=== PATIENT | female | born 1995 | race Caucasian/White ===

== ENCOUNTER 2018-04-05 14:01 | Inpatient (IN) | payer MEDICAID, OTHER ==
[~2018-04-05] VITALS: Ht 147.3 cm; Wt 99.8 kg
[2018-04-05 14:05] VITALS: BP 145/66; PULSE 101; RESP 16; TEMP 98.4; O2SAT 98
[2018-04-05 14:35] VITALS: BP 127/67; PULSE 99; RESP 18; TEMP 98.4; O2SAT 95
[2018-04-05 15:19] LABS: BASOPHIL % 0.5 % (0.0-2.0); EOSINOPHIL # 0.1 TH/MM3 (0-0.4); EOSINOPHIL % 0.9 % (0.0-4.0); HEMATOCRIT 44.7 % (35.0-46.0); HEMOGLOBIN 15.7 GM/DL (11.6-15.3); LYMPH % 28.3 % (9.0-44.0); LYMPHOCYTE # 2.6 TH/MM3 (1.0-4.8); MEAN CELL VOLUME 91.5 FL (80.0-100.0); MEAN CORPUSCULAR HEMOGLOBIN 32.1 PG (27.0-34.0); MEAN PLATELET VOLUME 9.9 FL (7.0-11.0); MONO % 5.3 % (0.0-8.0); MONOCYTE # 0.5 TH/MM3 (0-0.9); PLATELET COUNT 211 TH/MM3 (150-450); RED BLOOD COUNT 4.89 MIL/MM3 (4.00-5.30); RED CELL DISTRIBUTION WIDTH 12.2 % (11.6-17.2); WHITE BLOOD COUNT 9.2 TH/MM3 (4.0-11.0)
--- NOTE | 2018-04-05 15:27 | PD ---
HPI Chief Complaint: Suicide Ideation/Attempt Time Seen by Provider: 14:28 Travel History International Travel<30 days: No Contact w/Intl Traveler<30days: No Traveled to known affect area: No History of Present Illness HPI Patient is a 22-year-old female presenting voluntarily to the emergency department for psychiatric evaluation. Patient states she is doing the [employer], her professor gave her the option of coming in on her own or possibly having her Reis acted for suicidal ideations. Apparently professor noticed patient had cuts on her wrists was concerned about her. Patient does report feeling suicidal, she reports that she has been cutting herself since she was 14 years old however for the last few weeks specifically last few days she has cut herself more frequently, and deeply because she wanted to see "if it hurts to ". Patient stated there is a lot of things going on her life that has made her feel more depressed lately. She states that her parents got , than her mother's girlfriend left her and her mother blamed her for it. Her father is in the hospital with a GI bleed, her grandfather is paralyzed. She reports that she was hospitalized for psychiatric issues at age 15, she was on medications for 3 weeks when she was discharged her parents that her stop taking the medications. She denies any history of physical or sexual abuse. 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 She states that she has not been sleeping well lately, she only usually cuts herself on her legs but progressed to her wrist due to increasing depression. She denies any hallucinations or homicidal ideations, she denies any drug abuse or alcohol use. She reports a remote history of asthma. [facility] Past Medical History Asthma: Yes Depression: Yes ?: Not Social History Alcohol Use: No Tobacco Use: No Substance Use: No Review of Systems Except as stated in HPI: all other systems reviewed are Neg Psychiatric: Positive: Anxiety, Depression, Suicidal Ideations Physical Exam Narrative GENERAL: Overweight, well-developed, alert female. Presenting in no acute distress. SKIN: Warm and dry. HEAD: Atraumatic. Normocephalic. EYES: Pupils equal and round. No scleral icterus. No injection or drainage. ENT: No nasal bleeding or discharge. Mucous membranes pink and moist. NECK: Trachea midline. No JVD. CARDIOVASCULAR: Regular rate and rhythm. RESPIRATORY: No accessory muscle use. Clear to auscultation. Breath sounds equal bilaterally. GASTROINTESTINAL: Abdomen soft, non-tender, nondistended. Hepatic and splenic margins not palpable. MUSCULOSKELETAL: Extremities without clubbing, cyanosis, or edema. No obvious deformities. NEUROLOGICAL: Awake and alert. No obvious cranial nerve deficits. Motor grossly within normal limits. Five out of 5 muscle strength in the arms and legs. Normal speech. PSYCHIATRIC: Depressed mood and affect; insight and judgment normal. Data Data Last Documented VS Vital Signs Date Time Temp Pulse Resp B/P (MAP) Pulse Ox O2 Delivery O2 Flow Rate FiO2 04/05/18 14:35 98.4 99 18 127/67 (87) 95 Room Air Orders Orders Complete Blood Count With Diff (04/05/18 14:27) Comprehensive Metabolic Panel (04/05/18 14:27) Thyroid Stimulating Hormone (04/05/18 14:27) Urinalysis - C+S If Indicated (04/05/18 14:27) Psych Screen (04/05/18 14:27) Drug Screen, Random Urine (04/05/18 14:27) Alcohol (Ethanol) (04/05/18 14:27) Salicylates (Aspirin) (04/05/18 14:27) Tylenol (Acetaminophen) (04/05/18 14:27) Diet Regular Basic (04/05/18 Lunch) Diet Regular Basic (04/05/18 Dinner) Labs Laboratory Tests Test 04/05/18 15:09 White Blood Count 9.2 TH/MM3 Red Blood Count 4.89 MIL/MM3 Hemoglobin 15.7 GM/DL Hematocrit 44.7 % Mean Corpuscular Volume 91.5 FL Mean Corpuscular Hemoglobin 32.1 PG Mean Corpuscular Hemoglobin Concent 35.0 % Red Cell Distribution Width 12.2 % Platelet Count 211 TH/MM3 Mean Platelet Volume 9.9 FL Neutrophils (%) (Auto) 65.0 % Lymphocytes (%) (Auto) 28.3 % Monocytes (%) (Auto) 5.3 % Eosinophils (%) (Auto) 0.9 % Basophils (%) (Auto) 0.5 % Neutrophils # (Auto) 6.0 TH/MM3 Lymphocytes # (Auto) 2.6 TH/MM3 Monocytes # (Auto) 0.5 TH/MM3 Eosinophils # (Auto) 0.1 TH/MM3 Basophils # (Auto) 0.0 TH/MM3 CBC Comment DIFF FINAL Differential Comment Blood Urea Nitrogen 10 MG/DL Creatinine 0.78 MG/DL Random Glucose 96 MG/DL Total Protein 7.9 GM/DL Albumin 4.4 GM/DL Calcium Level 8.9 MG/DL Alkaline Phosphatase 71 U/L Aspartate Amino Transf (AST/SGOT) 38 U/L Alanine Aminotransferase (ALT/SGPT) 85 U/L Total Bilirubin 0.6 MG/DL Sodium Level 140 MEQ/L Potassium Level 4.2 MEQ/L Chloride Level 107 MEQ/L Carbon Dioxide Level 23.6 MEQ/L Anion Gap 9 MEQ/L Estimat Glomerular Filtration Rate 94 ML/MIN Thyroid Stimulating Hormone 3rd Gen 1.390 uIU/ML Salicylates Level LESS THAN 1.7 MG/DL Acetaminophen Level LESS THAN 2.0 MCG/ML Ethyl Alcohol Level LESS THAN 3 MG/DL MDM Medical Decision Making Medical Screen Exam Complete: Yes Emergency Medical Condition: Yes Interpretation(s) Laboratory Tests Test 04/05/18 15:09 White Blood Count 9.2 TH/MM3 Red Blood Count 4.89 MIL/MM3 Hemoglobin 15.7 GM/DL Hematocrit 44.7 % Mean Corpuscular Volume 91.5 FL Mean Corpuscular Hemoglobin 32.1 PG Mean Corpuscular Hemoglobin Concent 35.0 % Red Cell Distribution Width 12.2 % Platelet Count 211 TH/MM3 Mean Platelet Volume 9.9 FL Neutrophils (%) (Auto) 65.0 % Lymphocytes (%) (Auto) 28.3 % Monocytes (%) (Auto) 5.3 % Eosinophils (%) (Auto) 0.9 % Basophils (%) (Auto) 0.5 % Neutrophils # (Auto) 6.0 TH/MM3 Lymphocytes # (Auto) 2.6 TH/MM3 Monocytes # (Auto) 0.5 TH/MM3 Eosinophils # (Auto) 0.1 TH/MM3 Basophils # (Auto) 0.0 TH/MM3 CBC Comment DIFF FINAL Differential Comment Blood Urea Nitrogen 10 MG/DL Creatinine 0.78 MG/DL Random Glucose 96 MG/DL Total Protein 7.9 GM/DL Albumin 4.4 GM/DL Calcium Level 8.9 MG/DL Alkaline Phosphatase 71 U/L Aspartate Amino Transf (AST/SGOT) 38 U/L Alanine Aminotransferase (ALT/SGPT) 85 U/L Total Bilirubin 0.6 MG/DL Sodium Level 140 MEQ/L Potassium Level 4.2 MEQ/L Chloride Level 107 MEQ/L Carbon Dioxide Level 23.6 MEQ/L Anion Gap 9 MEQ/L Estimat Glomerular Filtration Rate 94 ML/MIN Thyroid Stimulating Hormone 3rd Gen 1.390 uIU/ML Salicylates Level LESS THAN 1.7 MG/DL Acetaminophen Level LESS THAN 2.0 MCG/ML Ethyl Alcohol Level LESS THAN 3 MG/DL Vital Signs Date Time Temp Pulse Resp B/P (MAP) Pulse Ox O2 Delivery O2 Flow Rate FiO2 04/05/18 14:35 98.4 99 18 127/67 (87) 95 Room Air 04/05/18 14:05 98.4 101 16 145/66 (92) 98 Differential Diagnosis Mood disorder versus depression versus suicidal ideations versus impaired coping mechanisms versus other Narrative Course Patient is well-appearing 22-year-old female presented voluntarily for psychiatric evaluation after being found cutting herself by her professors. Patient admits to feeling suicidal and cutting herself deeper than normal because of this. Patient's vital signs are stable. Mental health screening discussed with the patient. Psychiatric screen ordered. Labs reviewed, no acute findings identified. Patient is medically cleared for psychiatric evaluation at this time. Diagnosis Primary Impression: Medical clearance for psychiatric admission Condition: Stable RolandoMarlin ORANTES Apr 05, 2018 15:27
[2018-04-05 15:44] LABS: ALBUMIN 4.4 GM/DL (3.4-5.0); ALT (GPT) 85 U/L (9-42); AST (GOT) 38 U/L (16-38); BICARBONATE 23.6 MEQ/L (21.0-32.0); BLOOD UREA NITROGEN 10 MG/DL (7-18); CALCIUM 8.9 MG/DL (8.5-10.1); CHLORIDE 107 MEQ/L (98-107); CREATININE 0.78 MG/DL (0.50-1.00); GLOMERULAR FILTRATION RATE 94 ML/MIN (>89); GLUCOSE,RANDOM 96 MG/DL (74-106); SODIUM (NA) 140 MEQ/L (136-145)
[2018-04-05 15:53] LABS: ALKALINE PHOSPHATASE 71 U/L (45-117); TOTAL BILIRUBIN ADULT 0.6 MG/DL (0.2-1.0); TOTAL PROTEIN 7.9 GM/DL (6.4-8.2)
[2018-04-05 15:55] LABS: ACETAMINOPHEN LESS THAN 2.0 MCG/ML (10.0-30.0)
[2018-04-05 18:10] VITALS: BP 130/69; PULSE 83; RESP 20; O2SAT 98
[2018-04-05 20:16] LABS: BACTERIA, URINE RARE /hpf; BILIRUBIN, URINE NEG (NEG); BLOOD, URINE NEG (NEG); GLUCOSE,URINE NEG (NEG); KETONE, URINE NEG (NEG); MUCUS URINE FEW /lpf (OCC); NITRITE,URINE NEG (NEG); SQUAMOUS EPITHELIAL CELL URINE 1 /hpf (0-5); URINE COLOR YELLOW (YELLW/STRAW); URINE LEUKOCYTE ESTERASE NEG (NEG)
[2018-04-05 22:24] VITALS: BP_SYST 141; BP_SYST 99; BP_DIAS 64; BP_DIAS 66; PULSE 77; PULSE 83; RESP 16; RESP 20; TEMP 98.1; TEMP 98.3; O2SAT 98
[2018-04-06 05:27] VITALS: BP 114/70; PULSE 80; RESP 18; TEMP 97.2; O2SAT 99
[2018-04-06 07:34] VITALS: BP 123/64; PULSE 81; RESP 15; TEMP 98.2; O2SAT 100
[2018-04-06 13:51] VITALS: BP 115/68; PULSE 89; RESP 18; O2SAT 97
--- NOTE | 2018-04-06 15:59 | PD ---
History of Present Illness Chief Complaint: Suicide Ideation/Attempt Time Seen by Provider: 14:30 Travel History International Travel<30 Days: No Contact w/Intl Traveler<30days: No Known affected area: No Legal Status Legal Status: Voluntary History of Present Illness: History of Present Illness HPI Patient is a 22-year-old single female with reported history of depression, history of self-injurious behavior by cutting, presenting voluntarily to the emergency department for psychiatric evaluation. 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 Her professor note is that the patient has self-inflicted superficial scratches on her wrist and gave her the option of coming in on her own or possibly having her Reis acted for suicidal ideations. Patient reports a history of self- injurious behavior beginning at age 15 years. Patient does report feeling suicidal and that for the past few days she has cut herself more frequently, and deeply because she wanted to see "if it hurts to ". Patient reports following stressors including the divorce of her parents, feeling that she was blamed for her mother's girlfriend leaving her mother, having to help care for her grandfather who is paralyzed, feeling like she is a disappointment to her family and her friends. EMR is reviewed. No previous contact with [facility] psychiatry. Current toxicology is negative. Patient is seen in J pod. She is alert and oriented female dressed in [facility]. She is engaging and cooperative with full range of affect. Her speech is clear and logical and of normal rate and tone. She describes her mood as depressed. Reports increased thoughts of suicide for the past few months but that in the past several days the thoughts of suicide have not gone away. She reports that 2 days ago she went into the shower with a blade and attempted to cut her wrists but was unsuccessful. 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 She feels unsafe if she were to be discharge because she cannot guarantee that she will not try to kill herself again. The patient denies any hallucinations. No delusions are no paranoia are evident. Reports poor sleep and states that she will not sleep for 3 days at a time and then will sleep for 36 hours straight, decreased appetite. She states she is maintaining fair grades. PF[employer] Past Medical History Medical History: Denies Significant Hx Asthma: Yes Depression: Yes Diminished Hearing: No Immunizations Current: Yes Influenza Vaccination: Yes ?: Not Past Surgical History Surgical History: No Previous Surgery Psychiatric History Psychiatric History Hx Psychiatric Treatment: 1 previous hospitalization at age 15 years for cutting herself. States she was prescribed medications but her parents took her off the medications after several weeks History of Inpatient Treatment: Yes Guns or firearms in home: No Social History Single, never , no children. Lives with her mother, her sister, and her grandfather. [facility] is [facility] [employer] and is studying nursing Hx Alcohol Use: No Hx Tobacco Use: No Hx Substance Use: No (PT DENIES) Hx of Substance Use Treatment: No Family Psychiatric History Maternal aunt with bipolar disorder. Father's uncle committed suicide by shooting himself. Allergies-Medications (Allergen,Severity, Reaction): Coded Allergies: No Known Allergies (Unverified , 04/06/18) Review of Systems Psychiatric: COMPLAINS OF: Depression, Suicidal Ideation Except as stated in HPI: all other systems reviewed are Neg Mental Status Examination Appearance: Appropriate Consciousness: Alert Orientation: x4 Motor Activity: Normal gait Speech: Unremarkable Language: Adequate Fund of Knowledge: Adequate Attention and Concentration: Adequate Memory: Unremarkable Mood: Appropriate Affect: Appropriate Thought Process & Associations: Intact, Logical, Goal directed Thought Content: Appropriate Hallucination Type: None Delusion Type: None Suicidal Ideation: Yes Suicidal Plan: Yes Suicidal Intention: No Homicidal Ideation: No Homicidal Plan: No Homicidal Intention: No Insight: Fair Judgment: Impulsive MDM Medical Decision Making Medical Record Reviewed: Yes Assessment/Plan Patient is a 22-year-old single female with reported history of depression, history of self-injurious behavior by cutting, presenting voluntarily to the emergency department for psychiatric evaluation. 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 Her professor note is that the patient has self-inflicted superficial scratches on her wrist and gave her the option of coming in on her own or possibly having her Reis acted for suicidal ideations. Patient reports a history of self- injurious behavior beginning at age 15 years. Patient does report feeling suicidal and that for the past few days she has cut herself more frequently, and deeply because she wanted to see "if it hurts to ". Patient continues to report feeling suicidal and unsafe if she were to go home as she cannot stop thinking about ways of committing suicide. She is unable to contract for safety with this show card writer and therefore she would be admitted to inpatient psychiatry for further evaluation, safety and stabilization. Orders Orders Diet Regular Basic (04/05/18 Dinner) Diet Regular Basic (04/06/18 Breakfast) Diet Regular Basic (04/06/18 Lunch) Diet Regular Basic (04/06/18 Dinner) Results Vital Signs Date Time Temp Pulse Resp B/P (MAP) Pulse Ox O2 Delivery O2 Flow Rate FiO2 04/06/18 13:51 89 18 115/68 (84) 97 Room Air 04/06/18 07:34 98.2 81 15 123/64 (83) 100 Room Air 04/06/18 07:34 81 15 100 Room Air 04/06/18 05:27 97.2 80 18 114/70 (85) 99 04/05/18 22:24 98.1 83 20 141/64 (89) 98 04/05/18 18:10 83 20 130/69 (89) 98 Room Air Laboratory Tests Test 04/05/18 19:27 Urine Color YELLOW Urine Turbidity CLEAR Urine pH 7.0 Urine Specific [place] 1.027 Urine Protein TRACE Urine Glucose (UA) NEG Urine Ketones NEG Urine Occult Blood NEG Urine Nitrite NEG Urine Bilirubin NEG Urine Urobilinogen LESS THAN 2.0 Urine Leukocyte Esterase NEG Urine RBC 8 Urine WBC LESS THAN 1 Urine Squamous Epithelial Cells 1 Urine Bacteria RARE Urine Mucus FEW Microscopic Urinalysis Comment CULT NOT INDICATED Urine Opiates Screen NEG Urine Barbiturates Screen NEG Urine Amphetamines Screen NEG Urine Benzodiazepines Screen NEG Urine Cocaine Screen NEG Urine Cannabinoids Screen NEG Diagnosis Primary Impression: Medical clearance for psychiatric admission Additional Impression: Adjustment disorder Admitting Information Admitting Physician Requests: Admit Condition: Stable Problem Qualifiers Additional Impression: Adjustment disorder Qualified Codes: F43.21 - Adjustment disorder with depressed mood Tuyet Santana Apr 06, 2018 15:59
[2018-04-06] MEDS ORDERED: MAGNESIUM HYDROXIDE SUSP 30 ML CUP PO PRN (16:30)
[2018-04-06] MEDS ORDERED: ALUMINUM/MAGNESIUM/SIMETH 30 ML CUP PO PRN (16:30)
[2018-04-06] MEDS ORDERED: ACETAMINOPHEN 325 MG TAB PO PRN (16:30)
[2018-04-06 18:00] VITALS: BP 115/68; PULSE 89; RESP 18; TEMP 98.2; O2SAT 97
[2018-04-07 05:43] VITALS: BP 110/63; PULSE 75; RESP 18; TEMP 97.4; O2SAT 100
[2018-04-07 08:44] LABS: BICARBONATE 26.5 MEQ/L (21.0-32.0); BLOOD UREA NITROGEN 17 MG/DL (7-18); CALCIUM 9.3 MG/DL (8.5-10.1); CHLORIDE 105 MEQ/L (98-107); CHOLESTEROL 182 MG/DL (120-200); CREATININE 0.78 MG/DL (0.50-1.00); GLOMERULAR FILTRATION RATE 94 ML/MIN (>89); GLUCOSE,RANDOM 92 MG/DL (74-106); SODIUM (NA) 141 MEQ/L (136-145); TRIGLYCERIDES 207 MG/DL (42-150)
[2018-04-07 08:49] LABS: HDL CHOLESTEROL 31.9 MG/DL (40.0-60.0); LDL CHOLESTEROL 109 MG/DL (0-99)
--- NOTE | 2018-04-07 10:36 | EKG ---
Date Performed: 04/07/2018 Time Performed: 07:14:25 PTAGE: 22 years EKG: Sinus rhythm WITH SINUS ARRHYTHMIA LOW QRS VOLTAGE IN PRECORDIAL LEADS BORDERLINE ECG PREVIOUS TRACING : 09/02/1999 08.11 Compared to previous tracing, heart rate has slowed. DOCTOR: Isiah George Interpretating Date/Time 04/07/2018 10:35:07
--- NOTE | 2018-04-07 12:04 | HHI.HP ---
Provisional Diagnosis Admission Date Apr 06, 2018 at 16:21 [place] I. 1. Major depressive disorder, recurrent, moderate Rule out underlying dysthymia (i.e. double depression) 2. Nonsuicidal self-injurious behavior Gob[place] II. Deferred Certification of Person's Competence To Provide Express and Informed Consent I have personally examined Chiquis Anna , a person being served at [facility] on, Apr 07, 2018 12:04. Express and informed consent means consent voluntarily given in writing, by a competent person, after sufficient explanation and disclosure of the subject matter involved to enable the person to make a knowing and willful decision without any element of force, fraud, deceit, duress, or other form of constraint or coercion. This person is 18 years of age or older, is not now known to be incompetent to consent to treatment with a guardian advocate, and does not have a health care surrogate or proxy currently making medical treatment decisions. I have found this person to be one of the following: [x] Competent to provide express and informed consent, as defined above, for voluntary admission to this facility and is competent to provide express and informed consent for treatment. He/she has the consistent capacity to make well reasoned, willful, and knowing decisions concerning his or her medical or mental health treatment. The person fully and consistently understands the purpose of the admission for examination/placement and is fully capable of personally exercising all rights assured [place] Incompetent to provide express and informed consent to voluntary admission, and this is incompetent to provide express and informed consent to treatment. The person must be transferred to involuntary status and a petition for a guardian advocate filed with the Circuit Court. [] Refusing to provide express and informed consent to voluntary admission but is competent to provide express and informed consent for treatment. The person must be discharged or transferred to involuntary status. Form shall be completed within 24 hours of a person's arrival at the receiving facility and filed in the clinical record of each person: 1. Admitted on a voluntary basis 2. Permitted to provide express and informed consent to his/her own treatment 3. Allowed to transfer from involuntary to voluntary status 4. Prior to permitting a person to consent to his or her own treatment after having been previously found incompetent to consent to treatment. History of Present Illness Capacity: Has Capacity Psych Chief Complaint: "I sona need to stop trying to kill myself." HPI Ms. Anna is a 22-year-old female with psychiatric history as detailed below who presents voluntarily for psychiatric admission. 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 Reviewing the electronic medical record, it appears this is patient's first visit to [facility]. Patient seen and examined with nurse. Chart reviewed. Case discussed with nursing staff. On my examination today, the patient says that she has been feeling increasingly depressed over several months. Sleep is poor as is appetite. Concentration is fair. She says that she has "always" felt depressed and "I cannot recall feeling happy." She says that she tried to slit her wrists in the shower a few days ago in a suicide attempt but discovered that one of her friends had removed the sweat box attendant that she usually uses for her non-suicidal self-injury. She was forced to use a safety razor instead and found this inadequate to the task and gave up. She says that this and all of her previous suicide attempts have been impulsive noting "I just get really stressed and anxious" and engage in negative self talk prior to self injury. She does not describe any current desire to self injure on the unit. I can elicit no current or prior hypomanic or manic symptoms. No audiovisual hallucinations. No delusional material. She does note that she is scared of the dark because she fears there are "things in the shadows coming to get me" and so she sleeps with the lights on. She denies any history of trauma when asked, although I do wonder about some sort of occult trauma history. Main stressor is relationship with parents. She apparently comes from a high expressed emotion household. Parents have and mother has been dating a female partner. Mother and partner reportedly broke up, and patient says mother blames her for the breakup. Mother has also reportedly recently been jailed. Remainder of the psychiatric ROS is negative. No acute physical complaints. Past psychiatric history: The patient reports a history of previous psychiatric diagnosis, although she cannot recall exactly what the diagnosis is. She is not presently under the care of a psychiatrist but sees a therapist by the name of Mariza every week with whom she discusses "how shitty my family is." Patient reports that she was psychiatrically admitted at age 15. She reports multiple previous suicide attempts by cutting, 5 by her account, most recently a few days ago as noted above. She also reports an extensive history of nonsuicidal self-injurious behavior starting at age 14. She says that she cuts daily. She has never sought pharmacotherapy for her psychiatric issues. Family history: Patient reports that her maternal aunt had bipolar disorder. Her paternal uncle completed suicide by gunshot. Chemical dependency history: The patient denies any abuse of drugs or alcohol. Social history: The patient lives with her mother and sister. 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 She enjoys her schooling. She also works at [employer]. She is single with no children. Denies any history. Denies any legal history. Denies any access to guns or firearms. She is an atheist. She denies any history of trauma. Review of Systems Except as stated in HPI: all other systems reviewed are Neg Past Family Social History Coded Allergies: No Known Allergies (Unverified , 04/06/18) Past Medical History Patient denies any past medical history. Current Medications Medications (Trade) Dose Ordered Sig/Kimberly Route Start Time Stop Time Status Last Admin (Tylenol) 650 mg Q4H PRN PO 04/06/18 16:30 (Milk Of Magnesia Liq) 30 ml DAILY PRN PO 04/06/18 16:30 (Mag-Al Plus Susp Liq) 30 ml Q6H PRN PO 04/06/18 16:30 Patient's Strengths (min. 2) Attending to basic needs. Verbally fluent. Physical Exam Physical examination completed by ED provider. On my examination today, the patient appears to be in no acute physical distress. No motor abnormalities noted. I do note several superficial lacerations on her left wrist as well as superficial lacerations on her right thigh. Vital Signs Vital Signs Date Time Temp Pulse Resp B/P (MAP) Pulse Ox O2 Delivery O2 Flow Rate FiO2 04/07/18 05:43 97.4 75 18 110/63 (79) 100 04/06/18 13:51 Room Air Lab Results Test 04/07/18 06:21 Blood Urea Nitrogen 17 MG/DL Creatinine 0.78 MG/DL Random Glucose 92 MG/DL Calcium Level 9.3 MG/DL Sodium Level 141 MEQ/L Potassium Level 3.8 MEQ/L Chloride Level 105 MEQ/L Carbon Dioxide Level 26.5 MEQ/L Anion Gap 10 MEQ/L Estimat Glomerular Filtration Rate 94 ML/MIN Triglycerides Level 207 MG/DL Cholesterol Level 182 MG/DL LDL Cholesterol 109 MG/DL HDL Cholesterol 31.9 MG/DL Cholesterol/HDL Ratio 5.70 RATIO Beta HCG, Qualitative LESS THAN 1 MIU/ML Labs reviewed Mental Status Examination Appearance: Appropriate Consciousness: Alert Orientation: x4 Motor Activity: Normal gait, Other (No motor abnormalities noted) Speech: Unremarkable Language: Adequate Fund of Knowledge: Adequate Attention and Concentration: Adequate Memory: Unremarkable Mood: Other (Depressed) Affect: Other (Fairly full and reactive) Thought Process & Associations: Intact, Logical, Goal directed, Linear Thought Content: Appropriate Hallucination Type: None Delusion Type: None Suicidal Ideation: Yes Suicidal Plan: No Suicidal Intention: No (No reported urge to hurt self on inpatient unit) Homicidal Ideation: No Homicidal Plan: No Homicidal Intention: No Insight: Fair Judgment: Impulsive Assessment & Plan Problem List: (1) Major depressive disorder, recurrent, moderate ICD Codes: F33.1 - Major depressive disorder, recurrent, moderate (2) Non-suicidal self harm ICD Codes: R45.89 - Other symptoms and signs involving emotional state Assessment & Plan 22-year-old female with psychiatric history as detailed above who is presently voluntarily admitted to the inpatient psychiatric unit. On my examination today , the patient says that she has felt depressed for as long as she can recall, although she has been feeling more depressed over the last few months. I suspect she is currently experiencing a major depressive episode, and there may be some component of underlying dysthymia. She reports recent aborted suicide attempt with a history of several previous reported suicide attempts as well as a lengthy history of nonsuicidal self injury and so is regarded to be at high risk for ongoing self-harm in a less restrictive setting. I will plan to admit the patient to the inpatient psychiatric unit for safety, observation and stabilization. Admit inpatient. Voluntary status. Initiate Lexapro 10 mg daily to target dysphoria with plans to titrate to effect. Atarax as needed for anxiety. Benadryl as needed for sleep. I have placed an order for the patient in her room to be searched regularly for potential means of self injury given that the patient tells me that she cuts herself daily. Low threshold to transfer to the higher acuity unit should behavior deteriorate. Vitals every shift. Counselor to see. Collateral information. Disposition planning. Estimated length of stay: 5-7 days. Discharge Planning Pending psychiatric stabilization. Request HC Surrog/Guard Advoc?: No Brody Dixon MD Apr 07, 2018 12:04
[2018-04-07] MEDS: ESCITALOPRAM OXALATE 10 MG TAB PO SCH (14:01)
[2018-04-07 15:51] LABS: HEMOGLOBIN A1C 4.7 % (4.3-6.0)
[2018-04-07 17:32] VITALS: BP 153/65; PULSE 88; RESP 19; TEMP 98.4; O2SAT 100
[2018-04-08] MEDS: ESCITALOPRAM OXALATE 10 MG TAB PO SCH (08:44)
--- NOTE | 2018-04-08 12:07 | HHI.PYPN ---
Subjective Chief Complaint: "I sona need to stop trying to kill myself." Remarks Patient was seen and case discussed with nursing. Supportive therapy was done with patient. She continues to feel that she would be better off given that she is a burden to others. Her dad told her that she is a disappointment for having committed suicide attempt. She believes that her parents think she is a disappointment because of her school choice. Patient feels that that she will get yelled at for missing school. Continues to have guilty feelings of poor insight. Patient says that she is feeling very anxious fidgety and unstable. She is having recurrent thoughts of cutting herself here in this unit. Mental Status Examination Appearance: Appropriate Consciousness: Alert Orientation: x4 Motor Activity: Normal gait, Other (No motor abnormalities noted) Speech: Unremarkable Language: Adequate Fund of Knowledge: Adequate Attention and Concentration: Adequate Memory: Unremarkable Mood: Other (Depressed) Affect: Other (Fairly full and reactive) Thought Process & Associations: Intact, Logical, Goal directed, Linear Thought Content: Appropriate Hallucination Type: None Delusion Type: None Suicidal Ideation: Yes Suicidal Plan: Yes (cut) Suicidal Intention: Yes Homicidal Ideation: No Homicidal Plan: No Homicidal Intention: No Insight: Fair Judgment: Impulsive Results Vitals/IOs Vital Signs Date Time Temp Pulse Resp B/P (MAP) Pulse Ox O2 Delivery O2 Flow Rate FiO2 04/07/18 17:32 98.4 88 19 153/65 (94) 100 04/06/18 13:51 Room Air Assessment & Plan Problem List: (1) Major depressive disorder, recurrent, moderate ICD Codes: F33.1 - Major depressive disorder, recurrent, moderate (2) Non-suicidal self harm ICD Codes: R45.89 - Other symptoms and signs involving emotional state Assessment & Plan Order one-to-one. For now patient to remain visible on the unit Justification for Cont. Inpt. Patient would decompensate in a less restrictive setting Request HC Surrog/Guard Advoc?: No Ismael Kidd DO Apr 08, 2018 12:07
[2018-04-08 17:19] VITALS: BP 138/79; PULSE 89; RESP 16; TEMP 98.5; O2SAT 100
[2018-04-08] MEDS: diphenhydrAMINE HCL 50 MG CAP PO PRN (20:15)
[2018-04-09 06:16] VITALS: BP 98/61; PULSE 74; RESP 17; TEMP 97.5; O2SAT 98
[2018-04-09] MEDS: ESCITALOPRAM OXALATE 10 MG TAB PO SCH (08:38)
--- NOTE | 2018-04-09 10:33 | HHI.PYPN ---
Subjective Chief Complaint: "I sona need to stop trying to kill myself." Remarks Patient was seen and case discussed with nursing. Patient continues with her one-to-one. Patient is markedly more guarded and blunted today. Poor eye contact. She is very preoccupied with various social stressors. She is concerned about what her school advisor will think of her actions. She is focused on ambivalent feelings concerning her dad at first blaming him and then loving him. Patient says, she had thoughts of cutting last night but was able to control. Today she denies any suicidal ideation intent or plan. No impulses to cut. Safety plan reviewed. Mental Status Examination Appearance: Appropriate Consciousness: Alert Orientation: x4 Motor Activity: Normal gait, Other (No motor abnormalities noted) Speech: Unremarkable Language: Adequate Fund of Knowledge: Adequate Attention and Concentration: Adequate Memory: Unremarkable Mood: Other (Depressed) Affect: Other (Fairly full and reactive) Thought Process & Associations: Intact, Logical, Goal directed, Linear Thought Content: Appropriate Hallucination Type: None Delusion Type: None Suicidal Ideation: Yes Suicidal Plan: Yes (cut) Suicidal Intention: No Homicidal Ideation: No Homicidal Plan: No Homicidal Intention: No Insight: Fair Judgment: Impulsive Results Vitals/IOs Vital Signs Date Time Temp Pulse Resp B/P (MAP) Pulse Ox O2 Delivery O2 Flow Rate FiO2 04/09/18 06:16 97.5 74 17 98/61 (73) 98 04/06/18 13:51 Room Air Assessment & Plan Problem List: (1) Major depressive disorder, recurrent, moderate ICD Codes: F33.1 - Major depressive disorder, recurrent, moderate (2) Non-suicidal self harm ICD Codes: R45.89 - Other symptoms and signs involving emotional state Assessment & Plan Continue current treatment plan Justification for Cont. Inpt. Patient would decompensate in a less restrictive setting Request HC Surrog/Guard Advoc?: No Ismael Kidd DO Apr 09, 2018 10:33
[2018-04-09 16:58] VITALS: BP 144/75; PULSE 80; RESP 18; TEMP 98.3; O2SAT 98
[2018-04-09] MEDS: diphenhydrAMINE HCL 50 MG CAP PO PRN (21:07)
[2018-04-10 05:48] VITALS: BP 101/66; PULSE 80; RESP 18; TEMP 97.6
[2018-04-10] MEDS: ESCITALOPRAM OXALATE 10 MG TAB PO SCH (09:17)
[2018-04-10] MEDS: hydrOXYzine HCL 50 MG TAB PO PRN (11:00)
[2018-04-10 18:20] VITALS: BP 143/63; PULSE 80; RESP 18; TEMP 97.9; O2SAT 98
--- NOTE | 2018-04-10 19:31 | HHI.PYPN ---
Subjective Chief Complaint: "I sona need to stop trying to kill myself." Remarks Reviewed electronic medical record and discussed case with staff. Patient's follow-up was conducted in the patel. She reports that she feels much better after shower. She did take her medication today and states that she feels "better". She complains that she did not sleep very well last night but states that her appetite was okay. She is denying any side effects from the medication. While Chiquis still appears to be manic, she does appear to be improving from this morning. She still maintains that she gets the urge to cut however she has not attempted to act on it. I have discontinued the one-to-one and discussed with Chiquis that if she develops the urge to communicate this to a tech or nurse. She is in agreement with this. Her mood is good today and her affect is euthymic, she remains somewhat childlike. Mental Status Examination Appearance: Appropriate Consciousness: Alert Orientation: x4 Motor Activity: Normal gait, Other (No motor abnormalities noted) Speech: Unremarkable Language: Adequate Fund of Knowledge: Adequate Attention and Concentration: Adequate Memory: Unremarkable Mood: Other (Depressed) Affect: Other (Fairly full and reactive) Thought Process & Associations: Intact, Logical, Goal directed, Linear Thought Content: Appropriate Hallucination Type: None Delusion Type: None Suicidal Ideation: Yes Suicidal Plan: Yes (cut) Suicidal Intention: No Homicidal Ideation: No Homicidal Plan: No Homicidal Intention: No Insight: Fair Judgment: Impulsive Results Vitals/IOs Vital Signs Date Time Temp Pulse Resp B/P (MAP) Pulse Ox O2 Delivery O2 Flow Rate FiO2 04/10/18 18:20 97.9 80 18 143/63 (89) 98 04/06/18 13:51 Room Air Assessment & Plan Problem List: (1) Major depressive disorder, recurrent, moderate ICD Codes: F33.1 - Major depressive disorder, recurrent, moderate (2) Non-suicidal self harm ICD Codes: R45.89 - Other symptoms and signs involving emotional state Assessment & Plan Estimated LOS: Medication recently started, continue current treatment plan. Patient appears manic today. Will reassess tomorrow. Days Justification for Cont. Inpt. Moving this patient to a lower level of care would likely result in decompensation. Request HC Surrog/Guard Advoc?: No Francisca Paniagua Apr 10, 2018 19:31
[2018-04-10] MEDS: diphenhydrAMINE HCL 50 MG CAP PO PRN (20:40)
[2018-04-11 05:52] VITALS: BP 110/68; PULSE 76; RESP 16; TEMP 97.9; O2SAT 99
[2018-04-11] MEDS: ESCITALOPRAM OXALATE 10 MG TAB PO SCH (09:00)
[2018-04-11] MEDS: hydrOXYzine HCL 50 MG TAB PO PRN ×2 (12:28→21:08)
[2018-04-11 18:21] VITALS: BP 152/68; PULSE 104; RESP 18; TEMP 98.3; O2SAT 98
--- NOTE | 2018-04-11 19:59 | HHI.PYPN ---
Subjective Chief Complaint: "I sona need to stop trying to kill myself." Remarks Reviewed electronic medical record discussed case with staff. Follow-up was conducted in the day room. Patient reports feeling "very nervous". She is very psychomotor agitated throughout the interview. She states that she did not sleep very well and she has not been "eating real well". She continues to report problems relating to her relationship with her parents. She continues to endorse that she has been having thoughts of self-harm. However, she states that she has gone to lie down when these thoughts have entered her mind and they do pass. Mental Status Examination Appearance: Appropriate Consciousness: Alert Orientation: x4 Motor Activity: Normal gait, Other (No motor abnormalities noted) Speech: Unremarkable Language: Adequate Fund of Knowledge: Adequate Attention and Concentration: Adequate Memory: Unremarkable Mood: Other (Depressed) Affect: Other (Fairly full and reactive) Thought Process & Associations: Intact, Logical, Goal directed, Linear Thought Content: Appropriate Hallucination Type: None Delusion Type: None Suicidal Ideation: Yes Suicidal Plan: Yes (cut) Suicidal Intention: No Homicidal Ideation: No Homicidal Plan: No Homicidal Intention: No Insight: Fair Judgment: Impulsive Results Vitals/IOs Vital Signs Date Time Temp Pulse Resp B/P (MAP) Pulse Ox O2 Delivery O2 Flow Rate FiO2 04/11/18 18:21 98.3 104 18 152/68 (96) 98 Intake and Output 04/11/18 04/11/18 04/12/18 08:00 16:00 00:00 Intake Total 240 ml 480 ml Balance 240 ml 480 ml Assessment & Plan Problem List: (1) Major depressive disorder, recurrent, moderate ICD Codes: F33.1 - Major depressive disorder, recurrent, moderate (2) Non-suicidal self harm ICD Codes: R45.89 - Other symptoms and signs involving emotional state Assessment & Plan Estimated LOS: Patient remains symptomatic. Will continue on current treatment plan hopeful for some symptom resolution. However, medication regimen may require titration. Days Justification for Cont. Inpt. Moving patient to a lower level of care would result and decompensation as she remains symptomatic at this time. Request HC Surrog/Guard Advoc?: No Francisca Paniagua Apr 11, 2018 19:59
[2018-04-11] MEDS: diphenhydrAMINE HCL 50 MG CAP PO PRN (21:08)
[2018-04-12 05:42] VITALS: BP 98/55; PULSE 70; RESP 16; TEMP 97.5; O2SAT 98
[2018-04-12] MEDS: ESCITALOPRAM OXALATE 10 MG TAB PO SCH (08:11)
--- NOTE | 2018-04-12 13:48 | HHI.PYPN ---
Subjective Chief Complaint: "I sona need to stop trying to kill myself." Remarks Reviewed electronic medical record and discussed case with staff. Follow up was conducted in the patel. Patient reports that she is feeling "much better". She advises that she slept well and her appetite is good. She denies any thoughts of cutting "so far today". She also seems much calmer today. Of note, when asked she does state that she has not spoken with either of her parents so far today. Mental Status Examination Appearance: Appropriate Consciousness: Alert Orientation: x4 Motor Activity: Normal gait, Other (No motor abnormalities noted) Speech: Unremarkable Language: Adequate Fund of Knowledge: Adequate Attention and Concentration: Adequate Memory: Unremarkable Mood: Other (Depressed) Affect: Other (Fairly full and reactive) Thought Process & Associations: Intact, Logical, Goal directed, Linear Thought Content: Appropriate Hallucination Type: None Delusion Type: None Suicidal Ideation: Yes Suicidal Plan: Yes (cut) Suicidal Intention: No Homicidal Ideation: No Homicidal Plan: No Homicidal Intention: No Insight: Fair Judgment: Impulsive Results Vitals/IOs Vital Signs Date Time Temp Pulse Resp B/P (MAP) Pulse Ox O2 Delivery O2 Flow Rate FiO2 04/12/18 05:42 97.5 70 16 98/55 (69) 98 Assessment & Plan Problem List: (1) Major depressive disorder, recurrent, moderate ICD Codes: F33.1 - Major depressive disorder, recurrent, moderate (2) Non-suicidal self harm ICD Codes: R45.89 - Other symptoms and signs involving emotional state Assessment & Plan Estimated LOS: Patient seems to have some improvement today. Will continue with current treatment plan and monitor for improvement. days Justification for Cont. Inpt. Patient has only recently begun to show improvements in symptoms. Moving to a less restrictive environment would likely result in decompensation. Request HC Surrog/Guard Advoc?: No Francisca Paniagua Apr 12, 2018 13:48
[2018-04-12 15:28] VITALS: BP 130/70; PULSE 83; RESP 18; TEMP 98.6; O2SAT 98
[2018-04-12] MEDS: hydrOXYzine HCL 50 MG TAB PO PRN (17:32)
[2018-04-13 05:48] VITALS: BP 107/67; PULSE 75; RESP 16; TEMP 97.6; O2SAT 98
[2018-04-13] MEDS: ESCITALOPRAM OXALATE 10 MG TAB PO SCH (10:41)
--- NOTE | 2018-04-13 16:59 | HHI.PYPN ---
Subjective Chief Complaint: "I sona need to stop trying to kill myself." Remarks Patient seen for follow, chart reviewed. Discussion nursing staff reported that patient had a visit with mother yesterday and had felt more depressed does bother her left better during visits. Patient reports feeling depressed today compliant with medications. Patient was found ambulating on unit noted B, cooperative. Patient states that she is feeling "good until my mom visited me yesterday". She said that things her mother has had had upset her and that she did not feel validated on her current depressive symptoms. Patient states that she has been having difficulty with sleeping continues report feeling depressed but no urge to hurt herself but did have thoughts of self-injurious behavior via cutting. Patient denies any suicide ideations at this time. Review of Systems Except as stated in HPI: all other systems reviewed are Neg Mental Status Examination Appearance: Appropriate Consciousness: Alert Orientation: x4 Motor Activity: Normal gait, Other (No motor abnormalities noted) Speech: Unremarkable Language: Adequate Fund of Knowledge: Adequate Attention and Concentration: Adequate Memory: Unremarkable Mood: Other (Depressed) Affect: Sad Thought Process & Associations: Intact, Logical, Goal directed, Linear Thought Content: Appropriate Hallucination Type: None Delusion Type: None, Somatic Suicidal Ideation: Yes Suicidal Plan: Yes (cut) Suicidal Intention: No Homicidal Ideation: No Homicidal Plan: No Homicidal Intention: No Insight: Fair Judgment: Impulsive Results Vitals/IOs Vital Signs Date Time Temp Pulse Resp B/P (MAP) Pulse Ox O2 Delivery O2 Flow Rate FiO2 04/13/18 05:48 97.6 75 16 107/67 (80) 98 Assessment & Plan Problem List: (1) Major depressive disorder, recurrent, moderate ICD Codes: F33.1 - Major depressive disorder, recurrent, moderate (2) Non-suicidal self harm ICD Codes: R45.89 - Other symptoms and signs involving emotional state Assessment & Plan Patient this time continues to endorse feeling depressed along with thoughts of self-injurious behavior via cutting at this time. Patient recent difficulty with sleep we will discontinue Benadryl and trazodone 50 mg p.o. at bedtime for sleep disturbance. We will continue to monitor mood and behavior. Continue current treatment. Brief supportive psychotherapy provided. Discharge planning in progress. Justification for Cont. Inpt. At risk for further decompensation if at lower level of care Discharge Planning Patient return back to her residence when psychiatrically stable. Request HC Surrog/Guard Advoc?: No Tom Osborn MD Apr 13, 2018 16:59
[2018-04-13 17:48] VITALS: BP 135/77; PULSE 87; RESP 20; TEMP 98.2; O2SAT 99
[2018-04-13] MEDS: traZODone HCL 50 MG TAB PO SCH (21:28)
[2018-04-14 06:04] VITALS: BP 130/82; PULSE 85; RESP 16; TEMP 97.6; O2SAT 96
[2018-04-14] MEDS: ESCITALOPRAM OXALATE 10 MG TAB PO SCH (08:22)
[2018-04-14 18:18] VITALS: BP 158/89; PULSE 94; RESP 16; TEMP 97.9; O2SAT 98
[2018-04-14] MEDS: hydrOXYzine HCL 50 MG TAB PO PRN (18:27)
--- NOTE | 2018-04-14 18:43 | HHI.PYPN ---
Subjective Chief Complaint: "I sona need to stop trying to kill myself." Remarks Patient seen for follow up, chart reviewed. Discussion nursing staff reported the patient continued to be isolative, feeling depressed but denying any suicide ideations. Patient was found ambulating on the unit noted B, cooperative. Patient states that she is feeling "kind of down" referring to her recent conversation with her brother yesterday and feeling that things are "tense" between her and her mother. Patient states that she has been feeling pressure from her mother to be performing simple chores in the home which she perceives as being more stressful when she restarts her schoolwork. Patient reports having been thrown out of her house previously and fears for this to happen again. Patient reports feeling depressed today stating feeling "kind of bad" and having intermittent suicide ideations at this time. Patient continues report feeling like hurting herself specifically with her ID band but states that she is able to address staff prior to hurting herself here at the unit. Patient reports having slept much better last evening with change of medications. Patient states that she plans on speaking with her mother over the weekend and she is aware she will return to the circumstances upon discharge. Review of Systems Except as stated in HPI: all other systems reviewed are Neg Mental Status Examination Appearance: Appropriate Consciousness: Alert Orientation: x4 Motor Activity: Normal gait, Other (No motor abnormalities noted) Speech: Unremarkable Language: Adequate Fund of Knowledge: Adequate Attention and Concentration: Adequate Memory: Unremarkable Mood: Sad Affect: Sad Thought Process & Associations: Intact, Logical, Goal directed, Linear Thought Content: Appropriate Hallucination Type: None Delusion Type: None, Somatic Suicidal Ideation: Yes (Intermittent) Suicidal Plan: Yes (cut) Suicidal Intention: No Homicidal Ideation: No Homicidal Plan: No Homicidal Intention: No Insight: Fair Judgment: Impulsive Results Vitals/IOs Vital Signs Date Time Temp Pulse Resp B/P (MAP) Pulse Ox O2 Delivery O2 Flow Rate FiO2 04/14/18 18:18 97.9 94 16 158/89 (112) 98 Intake and Output 04/14/18 04/14/18 04/15/18 08:00 16:00 00:00 Intake Total 360 ml 840 ml Balance 360 ml 840 ml Assessment & Plan Problem List: (1) Major depressive disorder, recurrent, moderate ICD Codes: F33.1 - Major depressive disorder, recurrent, moderate (2) Non-suicidal self harm ICD Codes: R45.89 - Other symptoms and signs involving emotional state Assessment & Plan Patient this time continues with depressed mood, continues with urge to cut and he continues with intermittent suicide ideations. We will increase escitalopram to 20 mg p.o. daily for depression, we will continue rest of medications. We will continue to monitor mood and behavior. Continue to encourage patient to participate in groups and activities. Discharge planning in progress. Justification for Cont. Inpt. At risk for further decompensation if at lower level of care Discharge Planning Patient return back to her residence was psychiatrically stable. Request HC Surrog/Guard Advoc?: No Tom Osborn MD Apr 14, 2018 18:43
[2018-04-14] MEDS: traZODone HCL 50 MG TAB PO SCH (21:23)
[2018-04-15 06:21] VITALS: BP 109/53; PULSE 75; RESP 18; TEMP 98.2; O2SAT 97
[2018-04-15] MEDS: ESCITALOPRAM OXALATE 10 MG TAB PO SCH (08:55)
--- NOTE | 2018-04-15 14:31 | HHI.PYPN ---
Subjective Chief Complaint: "I sona need to stop trying to kill myself." Remarks Reviewed electronic medical record and discussed case with staff. Follow-up was conducted in patient's room with ANNETTE Wisdom present. Patient reports that she feels depressed due to a conversation with her mother. States that she has been sleeping well and her appetite is been good. She denies any side effects from medication. Her mood is depressed and her affect is depressed as well. She still endorses intermittent thoughts of self-harm mostly occurring after interactions with her parents. Mental Status Examination Appearance: Appropriate Consciousness: Alert Orientation: x4 Motor Activity: Normal gait, Other (No motor abnormalities noted) Speech: Unremarkable Language: Adequate Fund of Knowledge: Adequate Attention and Concentration: Adequate Memory: Unremarkable Mood: Sad Affect: Sad Thought Process & Associations: Intact, Logical, Goal directed, Linear Thought Content: Appropriate Hallucination Type: None Delusion Type: None, Somatic Suicidal Ideation: Yes (Intermittent) Suicidal Plan: Yes (cut) Suicidal Intention: No Homicidal Ideation: No Homicidal Plan: No Homicidal Intention: No Insight: Fair Judgment: Impulsive Results Vitals/IOs Vital Signs Date Time Temp Pulse Resp B/P (MAP) Pulse Ox O2 Delivery O2 Flow Rate FiO2 04/15/18 06:21 98.2 75 18 109/53 (71) 97 Intake and Output 04/15/18 04/15/18 04/16/18 08:00 16:00 00:00 Intake Total 720 ml Balance 720 ml Assessment & Plan Problem List: (1) Major depressive disorder, recurrent, moderate ICD Codes: F33.1 - Major depressive disorder, recurrent, moderate (2) Non-suicidal self harm ICD Codes: R45.89 - Other symptoms and signs involving emotional state Assessment & Plan Estimated LOS: Patient continues to endorse intermittent thoughts of self-harm. Days Justification for Cont. Inpt. Moving this patient to a less restrictive environment would likely result decompensation. Request HC Surrog/Guard Advoc?: No Francisca Paniagua Apr 15, 2018 14:31
[2018-04-15] MEDS: hydrOXYzine HCL 50 MG TAB PO PRN (17:19)
[2018-04-15 18:27] VITALS: PULSE 87; RESP 18; TEMP 98.1; O2SAT 97
[2018-04-15] MEDS: traZODone HCL 50 MG TAB PO SCH (21:19)
[2018-04-16 05:36] VITALS: BP 100/53; PULSE 76; RESP 16; TEMP 97.8; O2SAT 98
[2018-04-16] MEDS: hydrOXYzine HCL 50 MG TAB PO PRN ×2 (09:29→17:40)
[2018-04-16] MEDS: ESCITALOPRAM OXALATE 10 MG TAB PO SCH (09:29)
--- NOTE | 2018-04-16 10:47 | HHI.PYPN ---
Subjective Chief Complaint: "I sona need to stop trying to kill myself." Remarks Reviewed electronic medical record and discussed case with staff. Follow-up was conducted in the day room. Patient reports that she is feeling better. She states that she slept well and denies any thoughts of self-harm yesterday or today. Interestingly enough, she also relates that she has not spoken to her mother father yesterday or today. She reports that she has talked to a friend and has received permission to "crash there when my family gets to be too much". Staff reports that she received as needed Atarax yesterday evening and this morning. She has been observed to be social with her peers and interacting in appropriate manner. Her mood was good and her affect slightly blunted today. However, she is much calmer than when I first met her. Mental Status Examination Appearance: Appropriate Consciousness: Alert Orientation: x4 Motor Activity: Normal gait, Other (No motor abnormalities noted) Speech: Unremarkable Language: Adequate Fund of Knowledge: Adequate Attention and Concentration: Adequate Memory: Unremarkable Mood: Sad Affect: Sad Thought Process & Associations: Intact, Logical, Goal directed, Linear Thought Content: Appropriate Hallucination Type: None Delusion Type: None, Somatic Suicidal Ideation: Yes (Intermittent) Suicidal Plan: Yes (cut) Suicidal Intention: No Homicidal Ideation: No Homicidal Plan: No Homicidal Intention: No Insight: Fair Judgment: Impulsive Results Vitals/IOs Vital Signs Date Time Temp Pulse Resp B/P (MAP) Pulse Ox O2 Delivery O2 Flow Rate FiO2 04/16/18 05:36 97.8 76 16 100/53 (69) 98 Intake and Output 04/16/18 04/16/18 04/17/18 08:00 16:00 00:00 Intake Total 360 ml Balance 360 ml Assessment & Plan Problem List: (1) Major depressive disorder, recurrent, moderate ICD Codes: F33.1 - Major depressive disorder, recurrent, moderate (2) Non-suicidal self harm ICD Codes: R45.89 - Other symptoms and signs involving emotional state Assessment & Plan Estimated LOS: Patient has shown some improvement. She still reports thoughts of self-harm after interacting with her parents. She will be reevaluated by her attending psychiatrist tomorrow. Days Justification for Cont. Inpt. Moving this patient to a less restrictive environment would likely result in decompensation. Request HC Surrog/Guard Advoc?: No Francisca Paniagua Apr 16, 2018 10:47
[2018-04-16 18:19] VITALS: BP 121/69; PULSE 77; RESP 17; TEMP 98.1; O2SAT 99
[2018-04-16] MEDS: traZODone HCL 50 MG TAB PO SCH (21:00)
[2018-04-17] MEDS: ESCITALOPRAM OXALATE 10 MG TAB PO SCH (09:04)
[2018-04-17] MEDS ORDERED: TRAZ50TA12 PO (12:56)
[2018-04-17] MEDS ORDERED: ESCI10TA PO (12:56)
--- NOTE | 2018-04-17 12:56 | HHI.DS ---
Psychiatry Discharge Summary Inpatient Psychiatric care?: Yes Advance Directive: No Reason Not Provided: Provided Info to Patient Mental Health AdvanceDirective: No Health Care Proxy: No Admission Admission Date Apr 06, 2018 at 16:21 Admission Diagnosis: (1) Major depressive disorder, recurrent, moderate ICD Code: F33.1 - Major depressive disorder, recurrent, moderate (2) Non-suicidal self harm ICD Code: R45.89 - Other symptoms and signs involving emotional state Brief History Ms. Anna is a 22-year-old female with psychiatric history as detailed below who presents voluntarily for psychiatric admission. She was apparently given the option to come in voluntarily versus be [place] acted by one of her professors at [employer]. Reviewing the electronic medical record, it appears this is patient's first visit to [facility]. Patient seen and examined with nurse. Chart reviewed. Case discussed with nursing staff. On my examination today, the patient says that she has been feeling increasingly depressed over several months. Sleep is poor as is appetite. Concentration is fair. She says that she has "always" felt depressed and "I cannot recall feeling happy." She says that she tried to slit her wrists in the shower a few days ago in a suicide attempt but discovered that one of her friends had removed the primer boxer that she usually uses for her non-suicidal self-injury. She was forced to use a safety razor instead and found this inadequate to the task and gave up. She says that this and all of her previous suicide attempts have been impulsive noting "I just get really stressed and anxious" and engage in negative self talk prior to self injury. She does not describe any current desire to self injure on the unit. I can elicit no current or prior hypomanic or manic symptoms. No audiovisual hallucinations. No delusional material. She does note that she is scared of the dark because she fears there are "things in the shadows coming to get me" and so she sleeps with the lights on. She denies any history of trauma when asked, although I do wonder about some sort of occult trauma history. Main stressor is relationship with parents. She apparently comes from a high expressed emotion household. Parents have and mother has been dating a female partner. Mother and partner reportedly broke up, and patient says mother blames her for the breakup. Mother has also reportedly recently been jailed. Remainder of the psychiatric ROS is negative. No acute physical complaints. Past psychiatric history: The patient reports a history of previous psychiatric diagnosis, although she cannot recall exactly what the diagnosis is. She is not presently under the care of a psychiatrist but sees a therapist by the name of Mariza every week with whom she discusses "how shitty my family is." Patient reports that she was psychiatrically admitted at age 15. She reports multiple previous suicide attempts by cutting, 5 by her account, most recently a few days ago as noted above. She also reports an extensive history of nonsuicidal self-injurious behavior starting at age 14. She says that she cuts daily. She has never sought pharmacotherapy for her psychiatric issues. Family history: Patient reports that her maternal aunt had bipolar disorder. Her paternal uncle completed suicide by gunshot. Chemical dependency history: The patient denies any abuse of drugs or alcohol. Social history: The patient lives with her mother and sister. 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 She enjoys her schooling. She also works at [employer]. She is single with no children. Denies any history. Denies any legal history. Denies any access to guns or firearms. She is an atheist. She denies any history of trauma. Tobacco Use In Past 30 Days: No Tobacco Past 30 Days Alcohol Use: 2-4 Times Per Month Hospital Course Patient was admitted to a locked, inpatient psychiatric unit. Appropriate precautions were in place throughout patient's hospital stay. Patient was seen and examined on the unit by psychiatry and also visited by counselor. Psychotropic medications were adjusted. Patient had improvement in presenting psychiatric symptomatology during the course of her hospital stay. There was no evidence of any suicidality or homicidality on the inpatient unit. There was no evidence of self-care deficit. Patient remained in generally good behavioral control and was compliant with medications. On the day of discharge : Patient seen and examined with nurse. Chart reviewed. Case discussed with nursing staff who reports patient is very positive and hopeful for discharge. No reported behavioral issues noted overnight. Case discussed with counselor who has obtained reassuring collateral information from patient's professor who sent her to the hospital in the first place. Patient and professor apparently have a very close relationship, and professor has no concerns about the patient being discharged home today. On my examination today, the patient is requesting discharge from the inpatient psychiatric unit today. She reports that her mood is much improved versus admission, and I can elicit no depressive or hypomanic/manic symptoms at this time. She denies any suicidal or homicidal ideation, intent or plan and contracts for safety. She says that she has not thought of suicide in over a week and has not thought of self injury in over 2 days. She says that the longest time that she has ever gone without contemplating self injury is 4 days, and so she thinks that she is doing fairly well in this regard. She does admit that conflict with parents, particularly mother, is an ongoing stressor, but she is relieved to have learned during this admission that she can go stay with her female friend Grant at any time should conflict in the home become too great. She denies any audiovisual hallucinations. I can elicit no delusional material. There is no evidence of any impairment in reality construction. She denies any side effects from medications. She has no physical complaints. Weighing the relevant factors and based on the available evidence, I phone technician that the patient does not meet criteria for involuntary psychiatric hospitalization at this time. There is no evidence of imminent risk of harm to self or others, nor is there evidence of self-care deficit that would support involuntary psychiatric hospitalization. Patient is requesting discharge from the inpatient psychiatric unit today, and I have no basis to retain her over her objection. Patient will be discharged today with psychiatric follow-up as arranged by counselor. Patient is also to follow up with primary care. I have counseled the patient to abstain from any substances of abuse. I have counseled the patient regarding warning signs for need to return to the psychiatric emergency room as part of a general safety plan. Results Blood Pressure 121 / 69 Vital Signs Date Time Temp Pulse Resp B/P (MAP) Pulse Ox O2 Delivery O2 Flow Rate FiO2 04/16/18 18:19 98.1 77 17 121/69 (86) 99 Laboratory Results Test 04/07/18 06:21 Cholesterol Level 182 MG/DL (120-200) HDL Cholesterol 31.9 MG/DL (40.0-60.0) Hemoglobin A1c 4.7 % (4.3-6.0) LDL Cholesterol 109 MG/DL (0-99) Triglycerides Level 207 MG/DL (42-150) Summary of Procedures None done Imaging None done Pending results at discharge: No Medications # of Antipsychotic meds at D/C: 0 Approp Antipsych med options 1 - Minimum of three failed multiple trials of monotherapy. 2 - Documented plan to taper to monotherapy due to previous use of multiple meds OR cross-taper in progress at D/C. 3 - Documentation of augmentation of Clozapine. 4 - Justification other than those listed in allowable values 1-3, document here : Discharge Discharge Date: Apr 17, 2018 Discharge Diagnosis: (1) Major depressive disorder in remission Diagnosis: Principal ICD Code: F32.5 - Major depressive disorder, single episode, in full remission (2) Non-suicidal self harm Diagnosis: Secondary (Chronic, no urge to self injure currently) ICD Code: R45.89 - Other symptoms and signs involving emotional state Pt Condition on Discharge: Stable Discharge Disposition: Discharge Home Discharge Instructions Diet Instructions: As Tolerated, No Restrictions Activities you can perform: Weight Bearing as Sobeida Scheduled Appointment: Darvin Tran Appointment Date: Apr 18, 2018 Appointment Time: 7:30am New Orders: HEPATIC FUNCTION [facility] - 1 Week New Medications: Escitalopram (Escitalopram) 10 Mg Tab 20 MG PO DAILY for Mental Health for 15 Days, #30 TAB 1 Refill Trazodone (Trazodone) 50 Mg Tab 50 MG PO HS for Mental Health for 15 Days, TAB 1 Refill Discharge Time > 30 minutes Mental Status Examination Appearance: Appropriate Consciousness: Alert Orientation: x4 Motor Activity: Normal gait, Other (No abnormal motor movements noted) Speech: Unremarkable Language: Adequate Fund of Knowledge: Adequate Attention and Concentration: Adequate Memory: Unremarkable (Grossly intact on clinical exam) Mood: Appropriate Affect: Appropriate, Euthymic Thought Process & Associations: Intact, Logical, Goal directed, Linear Thought Content: Appropriate Hallucination Type: None Delusion Type: None, Somatic Suicidal Ideation: No Suicidal Plan: No Suicidal Intention: No Homicidal Ideation: No Homicidal Plan: No Homicidal Intention: No Insight: Adequate Judgment: Adequate Mental Status Exam Remarks Insight and judgment are fair. Discharge/Advance Care Plan Health Problems: (1) Major depressive disorder, recurrent, moderate (2) Non-suicidal self harm Goals to promote your health * To prevent worsening of your condition and complications * To maintain your health at the optimal level Directions to meet your goals Take your medications as prescribed Follow your dietary instruction Follow activity as directed Keep your appointments as scheduled Take your immunizations and boosters as scheduled If your symptoms worsen call your PCP, if no PCP go to Urgent Care Center or Emergency Room For 16/05 questions related to your inpatient stay or results of tests pending at discharge, please contact Dr. Brody Dixon at Smoking is Dangerous to Your Health. Avoid second hand smoking Problem Qualifiers (1) Major depressive disorder in remission: Qualified Codes: F33.40 - Major depressive disorder, recurrent, in remission, unspecified Brody Dixon MD Apr 17, 2018 12:56
== END 2018-04-17 13:25 | disposition short-term general hospital (02) | DRG 885 ==
LOC: NEPJ 14:01 → NEDA 04-06 16:21 → H260 04-06 16:56
PROVIDERS: ADMIT Psychiatry & Neurology Psychiatry; ATTEND Psychiatry & Neurology Psychiatry
DX: F33.1 Major depressive disorder, recurrent, moderate (principal); R45.851 Suicidal ideations; J45.909 Unspecified asthma, uncomplicated; Z91.5 Personal history of self-harm; Z81.8 Family history of other mental and behavioral disorders
CPT/HCPCS: 80048; 80053; 80061; 80307; 81001; 83036; 84443; 84703; 85025; 93005; Q0163

== ENCOUNTER 2018-04-18 17:09 | Emergency (ER) | payer MEDICAID ==
[~2018-04-18] VITALS: Ht 147.3 cm; Wt 100.0 kg
[~2018-04-18 17:09] MED LIST: ESCI10TA PO; TRAZ50TA12 PO
[2018-04-18 17:30] VITALS: BP 141/86; PULSE 102; RESP 16; TEMP 98.1; O2SAT 99
== END 2018-04-18 21:27 | disposition left against medical advice (07) ==
LOC: NEDAMB 17:09
DX: R68.89 Other general symptoms and signs (principal)
CPT/HCPCS: 99281

== ENCOUNTER 2018-05-19 14:30 | Inpatient (IN) ==
--- NOTE | 2018-05-19 17:16 | ED ---
HPI General Chief Complaint: Psychiatric Symptoms Stated Complaint: psych eval Time Seen by Provider: 05/19/18 15:58 Source: patient Mode of arrival: ambulatory Limitations: no limitations History of Present Illness HPI Narrative: 22-year-old female with a history of depression present since to the emergency department for suicidal ideations. 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 Patient says she finished writing her suicide note last night and she was planning to fill a top with very hot water, get into the tub, and then slit her wrists. Says she hoped that she would quickly and set up slowly. She denies history of writing suicide note to diet denies history of attempted suicide. Says she was discharged recently was was unable to fill her medications because when she went home, she became very anxious and was unable to fill her medications because of the anxiety. Patient says she lives with her mother, sister, and grandfather. Says that she was unable to ask them for assistance because her "mother is moving to [place] in 2 weeks" and her sister is the "breadwinner". She says that her grandfather is disabled is unable to care for himself and therefore is unable to get the medications. Patient denies illicit drug use or chronic medical issues or medication use. She admits to drinking alcohol occasionally. 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 complaint: suicidal ideation Related Data Home Medications Medication Instructions Recorded Confirmed No Known Home Medications 05/19/18 05/19/18 Allergies Allergy/AdvReac Type Severity Reaction Status Date / Time No Known Allergies Allergy Unverified 05/19/18 14:45 Review of Systems Except as stated in HPI: all other systems reviewed are negative PMFSH Social History Social History Substance History: No History of Abuse Smoking Status: Never smoker How Often Do You Have a Drink Containing Alcohol: Never Recent Travel in [facility] within the Last 8 Weeks: No Recent Out of Country Travel within the Last 8 Weeks: No Exam Narrative Exam Narrative: GENERAL: Well-developed, well-nourished anxious SKIN: Focused skin assessment warm/dry. HEAD: Atraumatic. Normocephalic. EYES: Pupils equal and round. No scleral icterus. No injection or drainage. ENT: No nasal bleeding or discharge. Mucous membranes pink and moist. NECK: Trachea midline. No JVD. CARDIOVASCULAR: Regular rate and rhythm. No murmur appreciated. RESPIRATORY: No accessory muscle use. Clear to auscultation. Breath sounds equal bilaterally. GASTROINTESTINAL: Abdomen soft, non-tender, nondistended. Hepatic and splenic margins not palpable. MUSCULOSKELETAL: No obvious deformities. No clubbing. No cyanosis. No edema. NEUROLOGICAL: Awake and alert. No obvious cranial nerve deficits. Motor grossly within normal limits. Normal speech. PSYCHIATRIC: Mildly anxious, smiling throughout the exam Course Initial Documented Vital Signs Temperature 98.7 F 05/19/18 14:42 Pulse Rate 112 H 05/19/18 14:42 Respiratory Rate 18 05/19/18 14:42 Blood Pressure 163/84 H 05/19/18 14:42 Pulse Oximetry 97 05/19/18 14:42 Last Documented Vital Signs Temperature 97.2 F L 05/19/18 22:16 Pulse Rate 90 05/19/18 22:16 Respiratory Rate 16 05/19/18 22:16 Blood Pressure 132/76 05/19/18 22:16 Pulse Oximetry 99 05/19/18 22:16 Medical Decision Making MDM Narrative Medical decision making narrative: 22-year-old female presents emergency department for suicidal ideations. Labs ordered for evaluation. Mild leukocytosis at 12.7. No evidence of infection on today's exam. Ordered UA for evaluation. Physical exam findings are unremarkable. Patient is medically cleared to see psych. Pending urinalysis. Lab Data Result diagrams: 05/19/18 17:50 05/19/18 17:50 Lab Results 05/19/18 05/19/18 05/19/18 Range/Units 16:50 17:50 17:50 WBC 12.7 H (4.0-11.0) th/mm3 RBC 4.73 (4.00-5.30) mil/mm3 Hgb 15.1 (11.6-15.3) gm/dL Hct 43.7 (35.0-46.0) % MCV 92.3 (80.0-100.0) fL MCH 31.9 (27.0-34.0) pg MCHC 34.6 (32.0-36.0) % RDW 12.2 (11.6-17.2) % Plt Count 222 (150-450) th/mm3 MPV 10.0 (7.0-11.0) fL Neut % (Auto) 70.1 H (16.0-70.0) % Lymph % (Auto) 24.2 (9.0-44.0) % [place] % (Auto) 4.9 (0.0-8.0) % Eos % (Auto) 0.4 (0.0-4.0) % Baso % (Auto) 0.4 (0.0-2.0) % Neut # (Auto) 8.9 H (1.8-7.7) th/mm3 Lymph # (Auto) 3.1 (1.0-4.8) th/mm3 [place] # (Auto) 0.6 (0.0-0.9) th/mm3 Eos # (Auto) 0.1 (0.0-0.4) th/mm3 Baso # (Auto) 0.0 (0.0-0.2) th/mm3 WBC Differential . Differential Comment Auto diff final Sodium 143 (136-145) meq/L Potassium 3.9 (3.5-5.1) meq/L Chloride 110 H (98-107) meq/L Carbon Dioxide 25.0 (21.0-32.0) meq/L Anion Gap 8 (5-15) meq/L BUN 10 (7-18) mg/dL Creatinine 0.78 (0.50-1.00) mg/dL Estimated GFR Greater than 89 (>89) mL/min Random Glucose 78 (74-106) mg/dL Calcium 9.2 (8.5-10.1) mg/dL Total Bilirubin 0.5 (0.2-1.0) mg/dL Direct Bilirubin (0.0-0.2) mg/dL Indirect Bilirubin (0.0-0.8) mg/dL AST 32 (16-38) U/L ALT 74 H (9-42) U/L Alkaline Phosphatase 72 (45-117) U/L Total Protein 7.4 (6.4-8.2) g/dL Albumin 4.2 (3.4-5.0) g/dL TSH 2.240 (0.358-3.740) uIU/mL Beta HCG, Quant (0-5) mIU/mL Urine Opiates Screen Neg (Neg) Ur Barbiturates Screen Neg (Neg) Ur Amphetamines Screen Neg (Neg) U Benzodiazepines Scrn Neg (Neg) Urine Cocaine Screen Neg (Neg) U Cannabinoids Screen Neg (Neg) Serum Alcohol Less than 3 (0-5) mg/dL 05/19/18 05/19/18 Range/Units 17:50 17:50 WBC (4.0-11.0) th/mm3 RBC (4.00-5.30) mil/mm3 Hgb (11.6-15.3) gm/dL Hct (35.0-46.0) % MCV (80.0-100.0) fL MCH (27.0-34.0) pg MCHC (32.0-36.0) % RDW (11.6-17.2) % Plt Count (150-450) th/mm3 MPV (7.0-11.0) fL Neut % (Auto) (16.0-70.0) % Lymph % (Auto) (9.0-44.0) % [place] % (Auto) (0.0-8.0) % Eos % (Auto) (0.0-4.0) % Baso % (Auto) (0.0-2.0) % Neut # (Auto) (1.8-7.7) th/mm3 Lymph # (Auto) (1.0-4.8) th/mm3 [place] # (Auto) (0.0-0.9) th/mm3 Eos # (Auto) (0.0-0.4) th/mm3 Baso # (Auto) (0.0-0.2) th/mm3 WBC Differential Differential Comment Sodium (136-145) meq/L Potassium (3.5-5.1) meq/L Chloride (98-107) meq/L Carbon Dioxide (21.0-32.0) meq/L Anion Gap (5-15) meq/L BUN (7-18) mg/dL Creatinine (0.50-1.00) mg/dL Estimated GFR (>89) mL/min Random Glucose (74-106) mg/dL Calcium (8.5-10.1) mg/dL Total Bilirubin 0.5 (0.2-1.0) mg/dL Direct Bilirubin 0.1 (0.0-0.2) mg/dL Indirect Bilirubin 0.4 (0.0-0.8) mg/dL AST 32 (16-38) U/L ALT 74 H (9-42) U/L Alkaline Phosphatase 72 (45-117) U/L Total Protein 7.6 (6.4-8.2) g/dL Albumin 4.3 (3.4-5.0) g/dL TSH (0.358-3.740) uIU/mL Beta HCG, Quant Less than 1 (0-5) mIU/mL Urine Opiates Screen (Neg) Ur Barbiturates Screen (Neg) Ur Amphetamines Screen (Neg) U Benzodiazepines Scrn (Neg) Urine Cocaine Screen (Neg) U Cannabinoids Screen (Neg) Serum Alcohol (0-5) mg/dL Discharge Plan Discharge Disposition Patient Disposition: 30 Still Patient Discharge Condition Condition: Stable Discharge Details Diagnosis: Suicidal ideation Physicians Team ED Provider: Jarret Alvarez ED Midlevel Provider: Jodie Carr Primary Care Provider: UNKNOWN, Attending Provider: Brody Dixon ED Status: Left Department Discharge Information Discharge Date/Time: 05/19/18 21:07
[2018-05-19 17:32] LABS: Amphetamine Screen,Urine Neg (Neg); Barbiturate Screen,Urine Neg (Neg); Cannabinoid Screen,Urine Neg (Neg); Cocaine Screen,Urine Neg (Neg)
[2018-05-19 17:36] LABS: Opiate Screen,Urine Neg (Neg)
[2018-05-19 18:43] LABS: Baso % (Auto) 0.4 % (0.0-2.0); Eos # (Auto) 0.1 th/mm3 (0.0-0.4); Eos % (Auto) 0.4 % (0.0-4.0); Hematocrit 43.7 % (35.0-46.0); Hemoglobin 15.1 gm/dL (11.6-15.3); Lymph # (Auto) 3.1 th/mm3 (1.0-4.8); Lymph % (Auto) 24.2 % (9.0-44.0); Mean Corpuscular HGB Conc 34.6 % (32.0-36.0); Mean Corpuscular Hemoglobin 31.9 pg (27.0-34.0); Mean Corpuscular Volume 92.3 fL (80.0-100.0); Mono # (Auto) 0.6 th/mm3 (0.0-0.9); Mono % (Auto) 4.9 % (0.0-8.0); Neut # (Auto) 8.9 th/mm3 (1.8-7.7); Neut % (Auto) 70.1 % (16.0-70.0); Platelet Count 222 th/mm3 (150-450); Red Blood Count 4.73 mil/mm3 (4.00-5.30); Red Cell Distribution Width 12.2 % (11.6-17.2); White Blood Count 12.7 th/mm3 (4.0-11.0)
[2018-05-19 19:04] LABS: Alanine Aminotransferase 74 U/L (9-42); Albumin 4.2 g/dL (3.4-5.0); Anion Gap 8 meq/L (5-15); Aspartate Aminotransferase 32 U/L (16-38); Blood Urea Nitrogen 10 mg/dL (7-18); Calcium 9.2 mg/dL (8.5-10.1); Chloride 110 meq/L (98-107); Glomerular Filtration Rate Greater Than 89 mL/min (>89); Glucose,Random 78 mg/dL (74-106); Potassium 3.9 meq/L (3.5-5.1); Sodium 143 meq/L (136-145)
[2018-05-19 19:13] LABS: Alkaline Phosphatase 72 U/L (45-117); Total Protein 7.4 g/dL (6.4-8.2)
[2018-05-19 20:15] LABS: Albumin 4.3 g/dL (3.4-5.0)
[2018-05-19 20:20] LABS: Total Protein 7.6 g/dL (6.4-8.2)
[2018-05-19] MEDS ORDERED: Aluminum/Magnesium/Simethacone Susp 30 ML UDC PO PRN (21:58)
[2018-05-19] MEDS ORDERED: Acetaminophen 325 MG Tablet PO PRN (21:58)
[2018-05-20 00:27] LABS: Bacteria,Urine Rare /hpf; Bilirubin,Urine Negative (Negative); Clarity,Urine Hazy (Clear); Color,Urine Yellow (Yellw/Straw); Glucose,Urine (UA) Negative (Negative); Leukocyte Esterase,Urine Negative (Negative); Mucus,Urine Moderate /lpf (Occasional); Nitrite,Urine Negative (Negative); Specific Gravity,Urine 1.026 (1.002-1.035); Squamous Epithelial Cell,Urine 2 /hpf (0-5)
[2018-05-20 08:13] LABS: Baso # (Auto) 0.1 th/mm3 (0.0-0.2); Baso % (Auto) 0.5 % (0.0-2.0); Eos # (Auto) 0.2 th/mm3 (0.0-0.4); Hemoglobin 14.5 gm/dL (11.6-15.3); Lymph # (Auto) 3.5 th/mm3 (1.0-4.8); Lymph % (Auto) 36.6 % (9.0-44.0); Mean Corpuscular HGB Conc 35.3 % (32.0-36.0); Mean Corpuscular Hemoglobin 32.6 pg (27.0-34.0); Mean Corpuscular Volume 92.3 fL (80.0-100.0); Mean Platelet Volume 9.7 fL (7.0-11.0); Mono # (Auto) 0.7 th/mm3 (0.0-0.9); Mono % (Auto) 7.6 % (0.0-8.0); Neut # (Auto) 5.1 th/mm3 (1.8-7.7); Neut % (Auto) 53.3 % (16.0-70.0); Platelet Count 195 th/mm3 (150-450); Red Blood Count 4.44 mil/mm3 (4.00-5.30); Red Cell Distribution Width 11.8 % (11.6-17.2); White Blood Count 9.6 th/mm3 (4.0-11.0)
--- NOTE | 2018-05-20 11:27 | P.HPPSY ---
Provisional Diagnosis Admission Date: May 19, 2018 20:33 Madison I.: Major depressive disorder, recurrent, severe, without psychosis, poor impulse control Madison II.: Unspecified personality disorder, significant cluster B traits identified Madison III.: No significant medical history Competence Certification of Person's Competence To Provide Express and Informed Consent I have personally examined Chiquis Anna, a person being served at [facility] on, May 20, 2018 1105. Express and informed consent means consent voluntarily given in writing, by a competent person, after sufficient explanation and disclosure of the subject matter involved to enable the person to make a knowing and willful decision without any element of force, fraud, deceit, duress, or other form of constraint or coercion. This person is 18 years of age or older, is not now known to be incompetent to consent to treatment with a guardian advocate, and does not have a health care surrogate or proxy currently making medical treatment decisions. I have found this person to be one of the following: [] Competent to provide express and informed consent, as defined above, for voluntary admission to this facility and is competent to provide express and informed consent for treatment. He/she has the consistent capacity to make well reasoned, willful, and knowing decisions concerning his or her medical or mental health treatment. The person fully and consistently understands the purpose of the admission for examination/placement and is fully capable of personally exercising all rights assured [place] Incompetent to provide express and informed consent to voluntary admission, and this is incompetent to provide express and informed consent to treatment. The person must be transferred to involuntary status and a petition for a guardian advocate filed with the Circuit Court. [x] Refusing to provide express and informed consent to voluntary admission but is competent to provide express and informed consent for treatment. The person must be discharged or transferred to involuntary status. Form shall be completed within 24 hours of a person's arrival at the receiving facility and filed in the clinical record of each person: 1. Admitted on a voluntary basis 2. Permitted to provide express and informed consent to his/her own treatment 3. Allowed to transfer from involuntary to voluntary status 4. Prior to permitting a person to consent to his or her own treatment after having been previously found incompetent to consent to treatment. History of Present Illness Capacity: Has capacity History of Present Illness: The patient is 22-year-old woman, domiciled with her mother in [place], single, unemployed, no kids, with psychiatric history of depression, poor impulse control, personality pathology, 3 previous psychiatric hospitalizations, last hospitalization was last month here in [place] under the care of Dr. Dixon, documentation review, suicide attempts, extensive self cutting behavior without SI, no significant medical history, who present since to the emergency department for suicidal ideations. Patient initially voluntarily presented to the emergency department at the request of her clinical nursing manager for suicidal ideations. Patient says she finished writing her suicide note last night and she was planning to fill a top with very hot water, get into the tub, and then slit her wrists. Says she hoped that she would quickly and set up slowly. She denies history of writing suicide note to diet denies history of attempted suicide. Says she was discharged recently was was unable to fill her medications because when she went home, she became very anxious and was unable to fill her medications because of the anxiety. Patient says she lives with her mother, sister, and grandfather. Says that she was unable to ask them for assistance because her "mother is moving to [place] in 2 weeks" and her sister is the "breadwinner". She says that her grandfather is disabled is unable to care for himself and therefore is unable to get the medications. EMR was reviewed. The case was discussed with nursing staff. On my psychiatric evaluation I find a patient that is calm, cooperative, pleasant. The patient reports that she feels much better. She says that in the last days, since she was discharged from her last hospitalization, she has been feeling increasingly depressed in the context of her mother leaving her to go to live in another state. The patient reports that she feels abandoned, "quite empty" and purposeless. The patient reports she has been feeling depressed, she has been writing several suicide notes and I deviated away to commit suicide successfully this time. She reports that she has been unable to sleep in the last 2 weeks, she does not rest, and for this reason she feels a very poor energy, unable to think clear, with increased sense of hopelessness, helplessness, worthlessness, and continue suicidal ideation. At this moment the patient was able to contract for safety in the unit, she denies active suicidal ideation right now. She was able to show me multiple recent scars in her legs from self inflicted behavior "to substitute emotional pain with physical pain". Past psychiatric history: Patient reports that she does not have an official diagnosis, she reports 3 previous psychiatric hospitalizations, last hospitalization was here at [place] in March 2018 under the care of Dr. Dixon , she was medicated with Lexapro and trazodone. She has not been compliant with medications at home. Reports multiple suicidal attempts, and an extensive history of self cutting behavior without SI. 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 This includes certification that hospital inpatient services are reasonable and necessary and in the case of services not specified as inpatient-only under 42 CFR 419.22(n), that they are appropriately provided as inpatient services in accordance to with the 2-midnight benchmark under 43 CFR 412.3(e) I certify that inpatient psychiatric hospital services are medically necessary. Evaluation and treatment and/or diagnostic testing are expected to improve the patient's condition. The patient needs on a daily basis, active treatment furnished directly by or requiring the supervision of inpatient psychiatric facility personnel. Estimated Total Length of Stay (Days): 7 Plans for Post Hospital Care: Not yet determined Review of Systems Constitutional: Denies anorexia, Denies body ache(s), Denies chills, Denies daytime sleepiness, Denies excessive sweating, Denies fatigue, Denies fever(s), Denies headache(s), Denies increased appetite, Denies lack of energy, Denies malaise, Denies night sweats, Denies weakness, Denies weight gain, Denies weight loss, Denies other Ears, Nose, Mouth, and Throat: Denies abnormal hearing, Denies bleeding gums, Denies bad breath, Denies change in voice, Denies dental pain, Denies difficulty swallowing, Denies dizziness, Denies dry mouth, Denies ear discharge , Denies ear pain, Denies facial pain, Denies headache(s), Denies hearing loss, Denies hoarseness, Denies lip swelling, Denies nosebleed, Denies mouth lesions, Denies mouth pain, Denies nasal congestion, Denies nasal discharge, Denies nasal obstruction, Denies nasal trauma, Denies neck lump, Denies neck pain, Denies nose pain, Denies pain with swallowing, Denies poor balance, Denies post nasal drip, Denies ringing in the ears, Denies sinus pain, Denies sinus pressure , Denies sore throat, Denies throat swelling, Denies tongue swelling, Denies other Cardiovascular: Denies chest pain, Denies chest pain at rest, Denies chest pain with activity, Denies excessive sweating, Denies fainting, Denies fast heart rate, Denies foot swelling, Denies generalized swelling, Denies irregular heart rhythm, Denies leg pain with activity, Denies leg sores, Denies leg swelling, Denies lightheadedness, Denies radiating jaw, neck or arm pain, Denies rapid, pounding, or irregular heartbeat, Denies shortness of breath, Denies shortness of breath with activity, Denies shortness of breath when lying down, Denies shortness of breath causing sudden awakening, Denies slow heart rate, Denies other Respiratory: Denies change in phlegm color, Denies chest congestion, Denies cough, Denies coughing up blood, Denies excessive phlegm production, Denies pain on inspiration, Denies pain with cough, Denies shortness of breath, Denies shortness of breath with activity, Denies snoring, Denies stridor, Denies wheezing, Denies other Gastrointestinal: Denies abdominal pain, Denies belching, Denies black, tarry stools, Denies bloating, Denies bright, red blood in stools, Denies change in bowel habits, Denies constant urge to pass stool, Denies change in stools, Denies coffee ground vomit, Denies constipation, Denies cramping, Denies difficulty swallowing, Denies excessive passing of gas, Denies feeling full early, Denies heartburn, Denies incontinent of stools, Denies loose stools, Denies nausea, Denies pain with swallowing, Denies vomiting, Denies vomiting blood, Denies other Musculoskeletal: Denies abnormal walking, Denies back pain, Denies body aches, Denies decreased muscle mass, Denies deformity, Denies joint pain, Denies joint swelling, Denies limited joint movement, Denies loss of height, Denies muscle cramps, Denies muscle weakness, Denies neck pain, Denies numbness, Denies radiating pain into limb, Denies stiffness, Denies tingling, Denies other Neurologic: Denies abnormal hearing, Denies abnormal movements, Denies abnormal speech, Denies abnormal walking, Denies behavioral changes, Denies burning sensations, Denies confusion, Denies dizziness, Denies fainting, Denies frequent falls, Denies headache(s), Denies lack of coordination, Denies localized weakness, Denies loss of vision, Denies memory loss, Denies numbness, Denies other visual disturbances, Denies radiating pain, Denies restless legs, Denies convulsions, Denies seizure-like activity, Denies sensory deficit, Denies tingling, Denies tingling/numbness/burning sensations, Denies tremor(s), Denies unsteadiness, Denies weakness, Denies other Psychiatric: Reports depression, Reports thoughts of hurting/killing yourself, Denies abnormal sleep pattern, Denies anxiety, Denies behavioral changes, Denies change in appetite, Denies change in sex drive, Denies confusion, Denies difficulty concentrating, Denies hearing things others do not hear, Denies hopelessness, Denies irritability, Denies lack of enjoyment, Denies memory loss , Denies mood swings, Denies panic attacks, Denies paranoia, Denies seeing things others do not see, Denies sensing things others do not sense, Denies tactile hallucinations, Denies thoughts of hurting/killing others, Denies other PMFSH - History History Provided By: Patient - Tobacco History Second Hand Smoke Exposure: No Smoking Status: Never smoker - Alcohol History How Often Do You Have a Drink Containing Alcohol: Monthly or less - Substance Use History Substance History: No History of Abuse - Travel History Recent Travel in the [facility] Within the Last 8 Weeks: No Recent Travel Out of the Country Within the Last 8 Weeks: No - Immunization History Tetanus Immunization: <5 Years Hx Influenza Vaccine This Season: No Medications and Allergies Active Medications: Active Medications Acetaminophen (Tylenol) 650 mg PO Q4H PRN PRN Reason: Pain 1-5 or Temp >101F Al Hydrox/Mg Hydrox/Simethicone (Mag-Al Plus Susp Liq) 30 ml PO Q6H PRN PRN Reason: DYSPEPSIA Al Hydroxide/Mg Hydroxide (Milk Of Magnesia Liq) 30 ml PO Q12H PRN PRN Reason: Mild Constipation Trazodone HCl (Desyrel) 100 mg PO HS [facility] Allergies Allergy/AdvReac Type Severity Reaction Status Date / Time No Known Allergies Allergy Unverified 05/19/18 14:45 Home Medications Medication Instructions Recorded Confirmed Type No Known Home Medications 05/19/18 05/19/18 History Results - Labs CBC & Chem 7: 05/20/18 06:58 05/19/18 17:50 Labs: Laboratory Results - last 24 hr 05/19/18 05/19/18 05/19/18 16:50 16:50 17:50 WBC 12.7 H RBC 4.73 Hgb 15.1 Hct 43.7 MCV 92.3 MCH 31.9 MCHC 34.6 RDW 12.2 Plt Count 222 MPV 10.0 Neut % (Auto) 70.1 H Lymph % (Auto) 24.2 [place] % (Auto) 4.9 Eos % (Auto) 0.4 Baso % (Auto) 0.4 Neut # (Auto) 8.9 H Lymph # (Auto) 3.1 [place] # (Auto) 0.6 Eos # (Auto) 0.1 Baso # (Auto) 0.0 WBC Differential . Differential Comment Auto diff final Sodium Potassium Chloride Carbon Dioxide Anion Gap BUN Creatinine Estimated GFR Random Glucose Calcium Total Bilirubin Direct Bilirubin Indirect Bilirubin AST ALT Alkaline Phosphatase Total Protein Albumin TSH Beta HCG, Quant Urine Color Yellow Urine Clarity Hazy H Urine pH 6.0 Ur Specific [place] 1.026 Urine Protein Negative Urine Glucose (UA) Negative Urine Ketones Negative Urine Occult Blood Small H Urine Nitrate Negative Urine Bilirubin Negative Urine Urobilinogen Less than 2 Ur Leukocyte Esterase Negative Urine RBC 13 H Urine WBC 2 Ur Squamous Epith Cells 2 Urine Bacteria Rare H Urine Mucus Moderate H Micro UA Comment Culture not ind Urine Culture Comments Culture not ind Urine Opiates Screen Neg Ur Barbiturates Screen Neg Ur Amphetamines Screen Neg U Benzodiazepines Scrn Neg Urine Cocaine Screen Neg U Cannabinoids Screen Neg Serum Alcohol 07/05/19/18 05/19/18 17:50 17:50 17:50 WBC RBC Hgb Hct MCV MCH MCHC RDW Plt Count MPV Neut % (Auto) Lymph % (Auto) [place] % (Auto) Eos % (Auto) Baso % (Auto) Neut # (Auto) Lymph # (Auto) [place] # (Auto) Eos # (Auto) Baso # (Auto) WBC Differential Differential Comment Sodium 143 Potassium 3.9 Chloride 110 H Carbon Dioxide 25.0 Anion Gap 8 BUN 10 Creatinine 0.78 Estimated GFR Greater than 89 Random Glucose 78 Calcium 9.2 Total Bilirubin 0.5 0.5 Direct Bilirubin 0.1 Indirect Bilirubin 0.4 AST 32 32 ALT 74 H 74 H Alkaline Phosphatase 72 72 Total Protein 7.4 7.6 Albumin 4.2 4.3 TSH 2.240 Beta HCG, Quant Less than 1 Urine Color Urine Clarity Urine pH Ur Specific [place] Urine Protein Urine Glucose (UA) Urine Ketones Urine Occult Blood Urine Nitrate Urine Bilirubin Urine Urobilinogen Ur Leukocyte Esterase Urine RBC Urine WBC Ur Squamous Epith Cells Urine Bacteria Urine Mucus Micro UA Comment Urine Culture Comments Urine Opiates Screen Ur Barbiturates Screen Ur Amphetamines Screen U Benzodiazepines Scrn Urine Cocaine Screen U Cannabinoids Screen Serum Alcohol Less than 3 05/20/18 06:58 WBC 9.6 RBC 4.44 Hgb 14.5 Hct 41.0 MCV 92.3 MCH 32.6 MCHC 35.3 RDW 11.8 Plt Count 195 MPV 9.7 Neut % (Auto) 53.3 Lymph % (Auto) 36.6 [place] % (Auto) 7.6 Eos % (Auto) 2.0 Baso % (Auto) 0.5 Neut # (Auto) 5.1 Lymph # (Auto) 3.5 [place] # (Auto) 0.7 Eos # (Auto) 0.2 Baso # (Auto) 0.1 WBC Differential . Differential Comment Auto diff final Sodium Potassium Chloride Carbon Dioxide Anion Gap BUN Creatinine Estimated GFR Random Glucose Calcium Total Bilirubin Direct Bilirubin Indirect Bilirubin AST ALT Alkaline Phosphatase Total Protein Albumin TSH Beta HCG, Quant Urine Color Urine Clarity Urine pH Ur Specific [place] Urine Protein Urine Glucose (UA) Urine Ketones Urine Occult Blood Urine Nitrate Urine Bilirubin Urine Urobilinogen Ur Leukocyte Esterase Urine RBC Urine WBC Ur Squamous Epith Cells Urine Bacteria Urine Mucus Micro UA Comment Urine Culture Comments Urine Opiates Screen Ur Barbiturates Screen Ur Amphetamines Screen U Benzodiazepines Scrn Urine Cocaine Screen U Cannabinoids Screen Serum Alcohol Exam Vital signs: Vital Signs 05/19/18 14:42 05/19/18 17:48 05/19/18 22:16 Temperature 98.7 F 98.5 F 97.2 F L Pulse Rate 112 H 96 H 90 Respiratory Rate 18 16 16 Blood Pressure 163/84 H 118/63 132/76 Pulse Oximetry 97 98 99 05/20/18 05:51 Temperature 98.1 F Pulse Rate 80 Respiratory Rate 18 Blood Pressure 106/59 L Pulse Oximetry 95 Intake & Output 05/19/18 05/20/18 05/20/18 18:59 06:59 18:59 Weight 100 kg 99 kg Other: Weight On Admission 99 kg Narrative: She does not present any psychomotor agitation or retardation, no stiffness, no EPS, no catatonia, no gait - Constitutional no acute distress - Routine HEENT Exam Head: Present: normocephalic Eye: Present: EOMI ENT: Present: mucous membranes moist Mental Status Examination Appearance: Appropriate Consciousness: Alert Orientation: x4 Motor Activity: Normal gait Speech: Unremarkable Language: Adequate Fund of Knowledge: Adequate Attention and Concentration: Adequate Memory: Unremarkable Affect: Appropriate Thought Process & Associations: Intact Thought Content: Appropriate Hallucination Type: None Delusion Type: None Suicidal Ideation: Yes Suicidal Plan: Yes Suicidal Intention: No Homicidal Ideation: No Homicidal Plan: No Homicidal Intention: No Insight: Poor Judgment: Poor Assessment and Plan - Plan Plan: Estimated LOS: [] days On psychiatric evaluation today the patient is calm, cooperative, she reports that in the last 2 weeks she has been feeling extremely depressed, with increased sense of abandonment and loneliness, hopelessness, helplessness, worthlessness, "feeling empty" with persistent suicidal ideation with a plan of cutting herself to . She also reports poor sleep and energy level. The patient reports that she has being writing of multiple suicidal notes and ideating a successful weight to commit suicide. The patient reports as a major stressor that her mother is living her to go to live in another state. Meanwhile, the patient has being actively cutting herself in her legs to deal with the stress and frustration. This is a patient with an extensive history of depression, suicidal attempts, self cutting behavior, poor impulse control, maladaptive coping skills and noncompliant with medications and recommendations. She has an elevated risk of danger to self at the moment. During my evaluation and based on EMR review I had noted that the patient has several clinically significant traits cluster B personality pathology which might suggest that the patient might have a borderline personality disorder. I will start her with trazodone 100 mg at bedtime to help the patient with depression and insomnia. Justification for Continued Inpatient Stay: Continue psychiatric admission for stabilization
[2018-05-20] MEDS: traZODone 100 MG Tablet PO SCH (21:25)
--- NOTE | 2018-05-21 13:41 | P.PNPSY ---
Subjective Remarks: This is a request for second opinion. Admission note was reviewed and I agree with the history. Patient was seen and case was discussed with nursing. Patient continues to complain of suicidal ideation. She has various plans on the unit including cutting herself with various objects that she could sharpen and scooping her eyes out. This is likely personality disorder behavior as a precaution we will order a one-to-one Mental Status Examination Appearance: Appropriate Consciousness: Alert Orientation: x4 Motor Activity: Normal gait Speech: Unremarkable Language: Adequate Fund of Knowledge: Adequate Attention and Concentration: Adequate Memory: Unremarkable Mood: Sad Affect: Anxious Thought Process & Associations: Intact Thought Content: Appropriate Hallucination Type: None Delusion Type: None Suicidal Ideation: Yes Suicidal Plan: Yes Suicidal Intention: Yes Homicidal Ideation: No Homicidal Plan: No Homicidal Intention: No Insight: Poor Judgment: Poor Assessment and Plan - Plan Plan: Order one-to-one. I agree with the first opinion. Criteria include suicidal ideation Justification for Continued Inpatient Stay: Patient would decompensate in a less restrictive setting
[2018-05-21] MEDS: traZODone 100 MG Tablet PO SCH (21:17)
--- NOTE | 2018-05-22 16:19 | P.PNPSY ---
Subjective Remarks: The patient was seen today for psychiatric reevaluation. She was calm, cooperative, she reports that she has never stated that she wanted to kill herself in the unit. She was just mentioning "that I know many ways to cut myself if I want to". She was able to contract for safety in the unit. Continue to report depression, continues to report that her family does not love her, she has been abandoned by then, that she does not feel supported. She reports poor sleep at night, poor appetite, poor level of energy. Denies suicidal ideation at the moment, denies homicidal ideation denies visual and auditory hallucinations. Mental Status Examination Appearance: Appropriate Consciousness: Alert Orientation: x4 Motor Activity: Normal gait Speech: Unremarkable Language: Adequate Fund of Knowledge: Adequate Attention and Concentration: Adequate Memory: Unremarkable Mood: Sad Affect: Anxious Thought Process & Associations: Intact Thought Content: Appropriate Hallucination Type: None Delusion Type: None Suicidal Ideation: Yes Suicidal Plan: Yes Suicidal Intention: Yes Homicidal Ideation: No Homicidal Plan: No Homicidal Intention: No Insight: Poor Judgment: Poor Assessment and Plan - Plan Plan: Discontinue one-to-one. We will start Lexapro 10 mg daily for depression. Continue trazodone 50 mg at bedtime for insomnia and depression. Brief supportive psychotherapy provided Justification for Continued Inpatient Stay: Patient has an elevated risk of danger to self.
[2018-05-22] MEDS: Escitalopram 10 MG Tablet PO SCH (16:37)
[2018-05-22] MEDS: traZODone 100 MG Tablet PO SCH (20:09)
[2018-05-23 05:46] VITALS: RESP 17; O2SAT 97
[2018-05-23] MEDS: Escitalopram 10 MG Tablet PO SCH (08:13)
--- NOTE | 2018-05-23 14:54 | P.PNPSY ---
Subjective Remarks: The patient was seen today for psychiatric reevaluation. She seems to be in a better mood, with a brighter affect. She says that yesterday she met with her mother and they had a very positive conversation. She denies suicidal and homicidal ideation, she denies visual and auditory hallucinations. The patient has been compliant with her medications, no significant side effects. Mental Status Examination Appearance: Appropriate Consciousness: Alert Orientation: x4 Motor Activity: Normal gait Speech: Unremarkable Language: Adequate Fund of Knowledge: Adequate Attention and Concentration: Adequate Memory: Unremarkable Mood: Sad Affect: Anxious Thought Process & Associations: Intact Thought Content: Appropriate Hallucination Type: None Delusion Type: None Suicidal Ideation: Yes Suicidal Plan: No Suicidal Intention: No Homicidal Ideation: No Homicidal Plan: No Homicidal Intention: No Insight: Poor Judgment: Poor Assessment and Plan - Assessment (1) Major depressive disorder Code(s): F32.9 - Major depressive disorder, single episode, unspecified Status : Acute - Plan Plan: Patient shows today improvement in mood and affect. Continue Lexapro 10 mg daily for depression. Continue trazodone 50 mg at bedtime for insomnia and depression. Brief supportive psychotherapy provided Justification for Continued Inpatient Stay: She has an elevated risk to decompensate at a lower level of care per (1) Major depressive disorder Qualifiers: Major depression recurrence: recurrent Major depression episode severity: severe Psychotic features: with psychotic features
[2018-05-23] MEDS: traZODone 100 MG Tablet PO SCH (20:17)
[2018-05-24 05:52] VITALS: BP 105/61; PULSE 90; TEMP 97.4
--- NOTE | 2018-05-24 12:43 | P.DSPSY ---
Psychiatry Discharge Summary Inpatient Psychiatric care?: Yes Advance Directives: No Mental Health Advance Directive: Yes Health Care Proxy: Yes - Admission Admission Date: May 19, 2018 20:33 - Admission Diagnosis (1) Major depressive disorder Code(s): F32.9 - Major depressive disorder, single episode, unspecified Brief History: The patient is 22-year-old woman, domiciled with her mother in [place], single, unemployed, no kids, with psychiatric history of depression, poor impulse control, personality pathology, 3 previous psychiatric hospitalizations, last hospitalization was last month here in [place] under the care of Dr. Dixon, documentation review, suicide attempts, extensive self cutting behavior without SI, no significant medical history, who present since to the emergency department for suicidal ideations. Patient initially voluntarily presented to the emergency department at the request of her nursing services manager for suicidal ideations. Patient says she finished writing her suicide note last night and she was planning to fill a top with very hot water, get into the tub, and then slit her wrists. Says she hoped that she would quickly and set up slowly. She denies history of writing suicide note to diet denies history of attempted suicide. Says she was discharged recently was was unable to fill her medications because when she went home, she became very anxious and was unable to fill her medications because of the anxiety. Patient says she lives with her mother, sister, and grandfather. Says that she was unable to ask them for assistance because her "mother is moving to [place] in 2 weeks" and her sister is the "breadwinner". She says that her grandfather is disabled is unable to care for himself and therefore is unable to get the medications. EMR was reviewed. The case was discussed with nursing staff. On my psychiatric evaluation I find a patient that is calm, cooperative, pleasant. The patient reports that she feels much better. She says that in the last days, since she was discharged from her last hospitalization, she has been feeling increasingly depressed in the context of her mother leaving her to go to live in another state. The patient reports that she feels abandoned, "quite empty" and purposeless. The patient reports she has been feeling depressed, she has been writing several suicide notes and I deviated away to commit suicide successfully this time. She reports that she has been unable to sleep in the last 2 weeks, she does not rest, and for this reason she feels a very poor energy, unable to think clear, with increased sense of hopelessness, helplessness, worthlessness, and continue suicidal ideation. At this moment the patient was able to contract for safety in the unit, she denies active suicidal ideation right now. She was able to show me multiple recent scars in her legs from self inflicted behavior "to substitute emotional pain with physical pain". Past psychiatric history: Patient reports that she does not have an official diagnosis, she reports 3 previous psychiatric hospitalizations, last hospitalization was here at [place] in March 2018 under the care of Dr. Dixon , she was medicated with Lexapro and trazodone. She has not been compliant with medications at home. Reports multiple suicidal attempts, and an extensive history of self cutting behavior without SI. 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 The patient was admitted in 2700 unit. Immediate psychosocial psychiatric assessment were performed. Safety measures taken. The patient was restarted a medication that she was taking in the past but she is top, Lexapro 10 mg that was increased to 20, trazodone 100 mg at bedtime. During her stay in the hospital, the patient at the beginning endorsing suicidal ideation, episodic thoughts of harming herself, but at the same time as stated that she has had those thoughts for many years. The patient showed good response to psychotropic regimen. At the moment of discharge, the patient reports feeling much better, being a baseline, she is future oriented, planning to go back home on finding a job, continue taking her medications. There are several elements in past psychiatric history, longitudinal observation and behavior in the unit that suggests a borderline personality disorder. - Discharge Discharge Date: 05/24/18 - Discharge Diagnosis (1) Borderline personality disorder Code(s): F60.3 - Borderline personality disorder Status: Acute Discharge Disposition: Home - Discharge Time > 30 minutes Mental Status Examination Appearance: Appropriate Consciousness: Alert Orientation: x4 Motor Activity: Normal gait Speech: Unremarkable Language: Adequate Fund of Knowledge: Adequate Attention and Concentration: Adequate Memory: Unremarkable Mood: Sad Affect: Anxious Thought Process & Associations: Intact Thought Content: Appropriate Hallucination Type: None Delusion Type: None Suicidal Ideation: Yes Suicidal Plan: No Suicidal Intention: No Homicidal Ideation: No Homicidal Plan: No Homicidal Intention: No Insight: Poor Judgment: Poor Discharge/Advance Care Plan - Results Vital Signs: Last Vital Signs Temp 97.4 F L 05/24/18 05:51 Pulse 90 05/24/18 05:51 Resp 17 05/24/18 05:51 BP 105/61 05/24/18 05:51 Pulse Ox 97 05/24/18 05:51 Lab Results: Laboratory Results TSH 2.240 uIU/mL (0.358-3.740) 05/19/18 17:50 Urine Culture Comments Culture not ind 05/19/18 16:50 Summary of Procedures: None Pending Results: None - Medications Number of antipsychotic medications at discharge: 0 - Discharge Care Plan Goals to Promote Your Health: * To prevent worsening of your condition and complications * To maintain your health at the optimal level Directions to Meet Your Goals: Take your medications as prescribed Follow your dietary instruction Follow activity as directed Keep your appointments as scheduled Take your immunizations and boosters as scheduled If your symptoms worsen call your PCP, if no PCP go to Urgent Care Center or Emergency Room For 16/05 questions related to your inpatient stay or results of tests pending at discharge, please contact Dr. Codey Shelby MD at Smoking is Dangerous to Your Health. Avoid second hand smoking (1) Major depressive disorder Qualifiers: Major depression recurrence: recurrent Major depression episode severity: severe Psychotic features: with psychotic features
== END 2018-05-24 17:00 | disposition home or self-care (01) ==
LOC: NEPJ 14:30 → NEDA 20:33 → H260 21:15 → H270 05-22 08:41
PROVIDERS: ADMIT Psychiatry & Neurology Psychiatry; ATTEND Psychiatry & Neurology Psychiatry